=== PATIENT | female | born 1960 | race Caucasian/White ===

== ENCOUNTER → 2017-02-02 | Outpatient (REF) | payer OTHER ==
[~2017-02-02] MED LIST: ADV250INH INH; CALC600T31 PO; CIPR-249 PO; COUM1TAB17 PO; COUM2.5T17 PO; LISI-538 PO; LISI20TA3 PO; NAPR500T3 PO; OXYC-141 PO; PERC5TAB12 PO
== END ==
LOC: M LAB REF 09:30
PROVIDERS: ATTEND Physician Assistant
DX: N39.0 Urinary tract infection, site not specified (principal)

== ENCOUNTER → 2017-07-30 | Outpatient (REF) | payer OTHER | LOC: M LAB REF 12:07 | DX: N39.0 Urinary tract infection, site not specified (principal) | CPT/HCPCS: 87086 ==

== ENCOUNTER → 2019-01-14 | Outpatient (REF) | payer OTHER ==
[~2019-01-14] MED LIST changes: +NAPR-885 PO; -NAPR500T3 PO
== END ==
LOC: M SFHCWAGY 15:14
PROVIDERS: ATTEND Family Medicine
DX: Z12.4 Encounter for screening for malignant neoplasm of cervix (principal); N88.8 Other specified noninflammatory disorders of cervix uteri

== ENCOUNTER → 2019-01-14 | Outpatient (CLI) | payer OTHER ==
--- NOTE | 2019-01-14 16:12 | REP ---
BILATERAL SCREENING DIGITAL MAMMOGRAM WITH 3D TOMOSYNTHESIS: There are no palpable abnormalities or other breast complaints. The the patient states she has not had a clinical breast examination in over a year. The the patient states she performs self-breast examinations 12 times per year. The Tyrer-Cuzick Score is: 15.9% . Comparison is 05/01/2014. There are scattered areas of fibroglandular density. There is no dominant mass, micro calcific cluster or architectural distortion that would indicate malignancy. There are no additional findings on 3D tomosynthesiss. There is no change from the prior study. Impression: BIRADS/ACR category 1 mammogram. Negative. Recommendation: Routine annual screening mammography. This mammogram was interpreted with the aid of a FDA approved computer-aided detection system. A. Negative mammogram reports should not delay biopsy if a dominant or clinically suspicious mass is present. B. Not all breast cancers are identified by mammography or tomosynthesis. C. Adenosis and dense breasts may obscure an underlying neoplasm. Patient letter M1. Electronically Signed by Anjel Augustine MD 01/14/2019 04:04 P
== END ==
LOC: M WHC 14:31
PROVIDERS: ATTEND Family Medicine
DX: Z12.31 Encounter for screening mammogram for malignant neoplasm of breast (principal)

== ENCOUNTER → 2019-02-18 | Outpatient (CLI) | payer OTHER ==
[~2019-02-18] MED LIST changes: +LISI20TA20 PO; -LISI20TA3 PO
--- NOTE | 2019-02-22 15:42 | DEXA ---
AP SPINE L1 - L4 1.164 -0.2 0.7 LT FEMUR TOTAL 1.087 0.6 1.4 LT NECK 0.990 -0.3 0.8 RT FEMUR TOTAL 1.064 0.4 1.2 RT NECK 1.014 -0.2 0.9 TOTAL BODY TOTAL OTHER COMMENTS: Normal bone densitometry of the spine and hips. FOLLOW-UP: Recommendation for the next bone density exam: 5 years. ANNA
== END ==
LOC: M WHC 09:56
PROVIDERS: ATTEND Family Medicine
DX: Z13.820 Encounter for screening for osteoporosis (principal)

== ENCOUNTER → 2019-07-18 | Outpatient (REF) | payer OTHER | LOC: M LAB REF 12:40 | PROVIDERS: ATTEND Physician Assistant Medical | DX: R19.4 Change in bowel habit (principal) ==

== ENCOUNTER → 2019-08-04 | Outpatient (CLI) | payer OTHER ==
--- NOTE | 2019-08-04 08:41 | REP ---
Abdominal right upper quadrant ultrasound for liver quadrant pain, nausea, diarrhea and gallbladder evaluation: There is no cholelithiasis, gallbladder wall thickening or pericholecystic fluid. There is no intrahepatic or extrahepatic biliary duct dilatation. The common biliary duct measures 6.0 ml in diameter. The hepatic parenchyma is dense compatible with hepato steatosis. The liver is enlarged measuring 19.0 cm craniocaudad in the midclavicular line. The visualized areas of the pancreas are unremarkable. Right kidney is normal size measuring 10.6 0.2 x 4.9 cm. There is no right renal calculus or hydronephrosis. There is no right renal solid or cystic mass. There is no right upper quadrant free fluid. Impression: Hepatomegaly and dense hepatic parenchyma compatible with hepato steatosis/hepatocellular disease. There are no hepatic masses or cysts. No biliary duct dilatation. The gallbladder is unremarkable. Electronically Signed by Anjel Augustine MD 08/04/2019 08:33 A
== END ==
LOC: M RAD 06:49
PROVIDERS: ATTEND Physician Assistant Medical
DX: R10.10 Upper abdominal pain, unspecified (principal); R19.4 Change in bowel habit; R11.0 Nausea; R16.0 Hepatomegaly, not elsewhere classified; K76.89 Other specified diseases of liver

== ENCOUNTER → 2019-10-22 | Outpatient (CLI) | payer OTHER ==
[~2019-10-22] MED LIST changes: +ARNU1INH IN; +METF500T13 PO; +NAPR-832 PO; +VENTAER INH
== END ==
LOC: M LABSMTC 11:53
PROVIDERS: ATTEND Anesthesiology
DX: Z01.812 Encounter for preprocedural laboratory examination (principal); Z11.59 Encounter for screening for other viral diseases

== ENCOUNTER 2019-10-25 06:46 | Day surgery (SDC) | payer OTHER ==
[~2019-10-25] VITALS: Ht 160 cm; Wt 97.0 kg
[2019-10-25] MEDS ORDERED: propofoL 200 MG/20 ML VIAL As Ordered ONE ×2 (07:15→08:22)
[2019-10-25] MEDS ORDERED: NS 1,000 ML IV ONE (07:15)
[2019-10-25] MEDS ORDERED: LIDOCAINE 2% 100MG/5ML SDV (FOR ANES.) As Ordered ONE (07:16)
--- NOTE | 2019-10-25 08:38 | ROOR ---
Patient Name: Evy Patterson Procedure Date: 10/25/2019 8:00 AM Date of : 1960 Age: 58 Room: [facility] Gender: Female Note Status: Finalized Procedure: Colonoscopy Indications: Colon cancer screening in patient at increased risk: Personal history of susceptibility to genetic disease/MUTHY Providers: Devin MIJARES MD Referring MD: DEVIN LESTER MD Requesting Provider: Medicines: Monitored Anesthesia Care Complications: No immediate complications. Procedure: Pre-Anesthesia Assessment: - The heart rate, respiratory rate, oxygen saturations, blood pressure, adequacy of pulmonary ventilation, and response to care were monitored throughout the procedure. The Colonoscope was introduced through the anus and advanced to 10 cm into the ileum. The colonoscopy was performed without difficulty. The patient tolerated the procedure well. The quality of the bowel preparation was good. Findings: The perianal and digital rectal examinations were normal. The mucosa vascular pattern in the entire colon was mildly decreased. This was biopsied with a cold forceps for histology. Internal hemorrhoids were found during retroflexion. The hemorrhoids were medium-sized. The terminal ileum appeared normal. Impression: - Internal hemorrhoids. - The colon is essentially normal with mildly decreased mucosal vascular pattern. Biopsied randomly throughout. - The examined portion of the ileum was normal. Recommendation: - Repeat colonoscopy in 5 years for screening purposes. - Telephone endoscopist for pathology results in 2 weeks. Devin Mijares MD Devin MIJARES MD 10/25/2019 8:38:00 AM Electronically signed by Devin MIJARES MD Number of Addenda: 0 Note Initiated On: 10/25/2019 8:00 AM Estimated Blood Loss: Estimated blood loss: none.
[2019-10-25 08:50] VITALS: BP 163/74
== END 2019-10-25 08:55 | disposition home or self-care (01) ==
LOC: M OPP 06:46
PROVIDERS: ATTEND Internal Medicine Gastroenterology
DX: K52.89 Other specified noninfective gastroenteritis and colitis (principal); R19.4 Change in bowel habit; Z13.79 Encounter for other screening for genetic and chromosomal anomalies; Z82.79 Family history of other congenital malformations, deformations and chromosomal abnormalities; I10 Essential (primary) hypertension; E11.9 Type 2 diabetes mellitus without complications; G47.30 Sleep apnea, unspecified; Z87.891 Personal history of nicotine dependence; Z79.899 Other long term (current) drug therapy; Z88.1 Allergy status to other antibiotic agents

== ENCOUNTER → 2020-01-20 | Outpatient (REF) | payer OTHER | LOC: M SFHCWAGY 09:55 | PROVIDERS: ATTEND Nurse Practitioner Women's Health | DX: Z12.4 Encounter for screening for malignant neoplasm of cervix (principal) ==

== ENCOUNTER → 2020-01-20 | Outpatient (CLI) | payer OTHER ==
--- NOTE | 2020-02-09 08:53 | REPMRS ---
Patient History The patient states she had a clinical breast exam in January 2020.Patient is postmenopausal and had first child at age 41. Family history of breast cancer at age 48 in paternal half sister. Digital Woman Screen Mammo: January 20, 2020 - Exam #: [id number] Bilateral CC and MLO view(s) were taken. Technologist: Ina Hendricks, Technologist Prior study comparison: January 14, 2019, bilateral digital woman screen mammo performed at [facility]. May 01, 2014, digital woman screen mammo performed at [facility]. March 29, 2012, digital woman screen mammo performed at [facility]. FINDINGS: There are scattered fibroglandular densities. The Volpara volumetric breast density category is:B. There has been no change in the appearance of the mammogram from the prior studies. There is a mild amount of scattered fibroglandular density which is fairly symmetric. There is no interval development of dominant mass, architectural distortion, or grouped microcalcification suggestive of malignancy. 3-D tomosynthesis shows no additional findings. Report was delayed due to a protracted computer network disruption experienced by this facility. Assessment: BI-RADS/ACR category 1 mammogram. Negative Mammogram. Recommendation Routine screening mammogram of both breasts in 1 year (for women over age 40). This patient's Lifetime Breast Cancer Risk is estimated at 15.5 %. This mammogram was interpreted with the aid of an FDA-approved computer-aided dectection system. Electronically Signed By: Bernard Hudson MD 02/09/20 0853
== END ==
LOC: M WHC 17:21
PROVIDERS: ATTEND Nurse Practitioner Women's Health
DX: Z12.31 Encounter for screening mammogram for malignant neoplasm of breast (principal); Z80.3 Family history of malignant neoplasm of breast; Z78.0 Asymptomatic menopausal state

== ENCOUNTER 2020-08-08 18:19 | Emergency (ER) | payer OTHER ==
[~2020-08-08] VITALS: Ht 160 cm; Wt 98.6 kg
[~2020-08-08 18:19] MED LIST changes: -LISI-538 PO; +LISI20TA33 PO
--- OUTSIDE RECORDS SUMMARY | 2020-08-08 18:30 | CCD | Continuity of Care Document ---
Author Author Evy [facility] Organization Unknown Address [address] [place] [address], [address] [place] [address] Phone [phone] Care Team Providers Care Sql Engineer Name Role Phone Devin Harrell M.D. AUTM Delilah Deluca M.D. AUTM [phone] Ina Rich AUTM [phone] Sdio AUTM [phone] Problems Active Problems Provider Date Allergic rhinitis Sharif Cabrrea MD Onset: 08/24/2012 Noncompliance with treatment Sharif Cabrera MD Onset: 02/13 Body mass index 30+ - obesity Sharif Cabrera MD Onset: 01/2012 Sarcoidosis Sharif Cabrera MD Onset: 01/21/2011 Obesity Sharif Cabrera MD Onset: 01/21/2011 Asthma without status asthmaticus Sharif Cabrera MD Onset: 01/21/2011 Dyspnea Sharif Cabrera MD Onset: 01/21/2011 Ex-smoker Sharif Cabrera MD Onset: 01/13/2011 Allergic asthma without status asthmaticus Sharif Cabrera MD Onset: 07/30/2010 Abnormal findings on diagnostic imaging of lung Sharfi reyes MD Onset: 07/30/2010 Obstructive sleep apnea syndrome Sharif Cabrera MD Onset: 07/30/2010 Social History Type Date Description Comments Sex Unknown ETOH Use 2 A Month Tobacco Use Start: Unknown End: Patient is a former smoker Smoking Status Reviewed: 09/21/19 Patient is a former smoker Allergies, Adverse Reactions, Alerts Active Allergies Reaction Severity Comments Date Zithromax 08/21/2010 Azithromycin Mouth Sores 06/18/2009 Medications Active Medications SIG Qnty Indications Ordering Provide r Date Mesalamine 1.2gm Tablets DR villeda 4 tablet by mouth once daily for colitis 360tabs Devin Thibodeaux MD 11/12/2019 CPAP +6 Ronnell Cabrera MD 03/26 Ventolin HFA 108(90Base) mcg/Act A erosol 2 puffs qid/prn 18gm Sharif Cabrera MD 03/19/2017 Arnuity Ellipta 100mcg/Act Aerosol 1 puff every day 30units Sharif Cabrera MD 03/25/2016 Lisinopril/Hydrochlorothiazide 20-25mg Tablets 1 tab by mouth daily Unknown 000 Gloria Allergy 180mg Tablets 1 as needed 30tabs Unknown Metformin HCL 500mg Tablets 1 by mouth twice daily Unknown Multi Vitamin Tablets Daily Unknown Naproxen 500mg Tablets Daily with a second dose if needed Unknown Vitamin D 50mcg (2000 Ut) Tablets Daily Unknown Probiotic Capsules 1 by mouth every day Unknown Vitamin C With Zinc Daily Unknown Immunizations CPT Code Status Date Vaccine Lot # [id number] Given 03/22/2019 Afluria, Quadrivalent, 0.5ml , [facility]# [id number] Given 03/30/2018 Influenza Virus Vaccine, Quadrivalent, Slit Virus, [place] Use [address]26 Given 03/30/2014 Influenza Virus Split 3 Yrs And Above For Intramuscular Use Q2036 Given 03/23/2013 Influenza Vaccine 3 Years Of Age Or Older (Flulaval) Q2036 Given 07/20/2012 Influenza Vaccine 3 Years Of Age Or Older (Flulaval) 86310 Given 06/22/2011 Pneumococcal PPSV23 Q2036 Given 04/02/2011 Influenza Vaccine 3 Years Of Age Or Older (Flulaval) 35722 Given 05/02/2010 Tetanus, Diphthe lenora Toxoids/Acellular Pertussis Vaccine 7 Or > 44168 Given 05/02/2010 Influenza Virus Split 3 Yrs And Above For Intramuscular Use Vital Signs Date Vital Result Comment 07/12/2020 3:10pm Height 63 inches 5'3" Weight 220.00 lb BMI (Body Mass Index) 39.0 kg/m2 [place] Body Weight 115 lb Weight 99.792 kg BSA (Body Surface Area) 2.01 m2 04/02/2020 8:21am BP Systolic 130 mmHg BP Diastolic 80 mmHg Heart Rate 94 /min O2 % BldC Oximetry 97 % Room Air Height 63 inches 5'3" Weight 214.00 lb BMI (Body Mass Index) 37.9 kg/m2 [place] Body Weight 115 lb Weight 97.070 kg BSA (Body Surface Area) 1.99 m2 Results Description No Information Available Procedures Date Code Description Status 04/02/2020 23409 Spirometry Completed Medical Devices Description No Information Available Encounters Type Date Location Provider Dx Diagnosis Office Visit 04/02/2020 8:30a [facility] Pulmonary/Thoracic Lawrenc margret Cabrera MD J45.40 Moderate persistent asthma, uncomplicate d G47.33 Obstructive sleep apnea (vineet lt) (pediatric) J30.9 Allergic rhinitis, unspecifi ed Assessments Date Code Description Provider 04/02/2020 J45.40 Moderate persistent asthma, unco mplicated Sharif Cabrera MD 04/02/2020 G47.33 Obstructive sleep apnea (adult) (pediatric) Sharif Cabrera MD 04/02/2020 J30.9 Allergic rhinitis, unspecified L nitesh Cabrera MD Plan of Treatment Future Appointment(s):* 10/09/2020 9:30 am - Sharif Cabrera MD at [facility] Pulmonary/Thoracic Functional Status Description No Information Available Mental Status Description No Information Available Referrals Description No Information Available
--- OUTSIDE RECORDS SUMMARY | 2020-08-08 18:30 | CCD | Continuity of Care Document ---
Author Author Evy [facility] [place] Organization Unknown Address [address] [place] [address] [place] [address] Phone [phone] Care Team Providers Care Supervisor Cell Room Name Role Phone [facility] AUTM [phone] Problems Description No Information Available Social History Type Date Description Comments Sex Unknown ETOH Use Denies alcohol use Tobacco Use Start: Unknown End: Unknown Patient is a former smoker 2001 Smoking Status Reviewed: 08/07/20 Patient is a former smoker 20 02 Allergies, Adverse Reactions, Alerts Active Allergies Reaction Severity Comments Date Azithromycin mouth pain 02/02/2017 Medications Active Medications SIG Qnty Indications Ordering Provide r Date Prednisone 20mg Tablets take one tablet three times a day for three days, then take one tab twice a day for three days, then take one tab daily for next three days 18tabs J45.21 Navdeep Da Silva JR., M.D. 08/07/2020 Doxycycline Monohydrate 100mg Tabl ets 1 tab by mouth twice a day for 10 days 20tabs J45.21 Navdeep Da Silva JR., M.D. 08/07/2020 Proair HFA 108(90Base) mcg/Act Aer osol 2 puffs every 4-6 hours as needed for sob 8.500gm J45.909 Navdeep Da Silva JR., M.D. 01/02/2019 Lisinopril qd Unknown Metformin HCL bid Unknown Arnuity Ellipta prn Unknown 0 Naproxen 375mg Tablets 1 tab by mouth three times a day as needed pain Unknown Montelukast Sodium 10mg Tablets Take One Tablet By Mouth Every Day Unknown Lialda 1.2gm Tablets DR Take Four Tablets By Mouth Once A Day For Colitis Unknown Sudafed 30mg Tablets 1 tab by mouth twice a day x 5 days as needed congestion Last dose at 2pm Unknown Immunizations Description No Information Available Vital Signs Date Vital Result Comment 08/07/2020 3:38pm BP Systolic 167 mmHg BP Diastolic 97 mmHg Heart Rate 93 /min Respiratory Rate 18 /min O2 % BldC Oximetry 97 % Body Temperature 98.0 F Weight 117.00 lb Height 63 inches 5'3" BMI (Body Mass Index) 20.7 kg/m2 Pain Level 9 01/02/2019 8:59am BP Systolic 192 mmHg BP Diastolic 102 mmHg Heart Rate 78 /min Respiratory Rate 18 /min O2 % BldC Oximetry 98 % Body Temperature 98.3 F Weight 217.00 lb Height 63 inches 5'3" BMI (Body Mass Index) 38.4 kg/m2 Pain Level 7 Results Description No Information Available Procedures Description No Information Available Medical Devices Description No Information Available Encounters Type Date Location Provider Dx Diagnosis Office Visit 08/07/2020 3:30p Main Office TAMMI Odom U07 .1 Covid-19 J45.21 Mild intermittent asthma wit h (acute) exacerbation Z20.828 Contact w and exposure to ot h viral communicable diseases Assessments Date Code Description Provider 08/07/2020 U07.1 Covid-19 TAMMI Workman 08/07/2020 J45.21 Mild intermittent asthma with (a cute) exacerbation TAMMI Odom 08/07/2020 Z20.828 Contact with and (mcdonough spected) exposure to other viral communicable diseases TAMMI Odom Plan of Treatment No Information Available Functional Status Description No Information Available Mental Status Description No Information Available Referrals Description No Information Available
--- OUTSIDE RECORDS SUMMARY | 2020-08-08 18:30 | CCD ---
Author Author [facility] Organization [facility] Address Unknown Phone Unavailable Care Team Providers Care Independent Marketing Consultant Name Role Phone PETROFF XU PA Unavailable Unavailable PETROFF, XU PA Unavailable Unavailable PETROFF, XU PA Unavailable Unavailable PETROFF, XU PA Unavailable Unavailable PETROFF, XU PA Unavailable Unavailable PETROFF, XU PA Unavailable Unavailable PETROFF, XU PA Unavailable Unavailable PETROFF, XU PA Unavailable Unavailable TOMArmaan PA Unavailable Unavailable TOMArmaan PA Unavailable Unavailable TOMArmaan PA Unavailable Unavailable TOMArmaan PA Unavailable Unavailable TOMArmaan PA Unavailable Unavailable TOMArmaan PA Unavailable Unavailable TOMArmaan PA Unavailable Unavailable TOMArmaan PA Unavailable Unavailable TOMArmaan PA Unavailable Unavailable TOMArmaan PA Unavailable Unavailable TOMArmaan PA Unavailable Unavailable TOMArmaan PA Unavailable Unavailable TOMArmaan PA Unavailable Unavailable TOM, L BONITA PA Unavailable Unavailable TOM, L BONITA PA Unavailable Unavailable TOM, L BONITA PA Unavailable Unavailable TOM, L BONITA PA Unavailable Unavailable TOM, L BONITA PA Unavailable Unavailable TOM, L BONITA PA Unavailable Unavailable Bear, W Ham RPA-C Unavailable Unavailable Bear, W Ham RPA-C Unavailable Unavailable Bear, W Ham RPA-C Unavailable Unavailable Bear, W Ham RPA-C Unavailable Unavailable Bear, W Ham RPA-C Unavailable Unavailable Bear, W Ham RPA-C Unavailable Unavailable Bear, W Ham RPA-C Unavailable Unavailable Bear, W Ham RPA-C Unavailable Unavailable Bear, W Ham RPA-C Unavailable Unavailable Bear, W Ham RPA-C Unavailable Unavailable Bear, W Ham RPA-C Unavailable Unavailable Bear, W Ham RPA-C Unavailable Unavailable Bear, W Ham RPA-C Unavailable Unavailable Bear, W Ham RPA-C Unavailable Unavailable Bear, W Ham RPA-C Unavailable Unavailable Bear, W Ham RPA-C Unavailable Unavailable SHANICE, SANA PA Unavailable Unavailable SHANICE, SANA PA Unavailable Unavailable SHANICE, SANA PA Unavailable Unavailable SHANICE, SANA PA Unavailable Unavailable SHANICE, SANA PA Unavailable Unavailable SHANICE, SANA PA Unavailable Unavailable SHANICE, SANA PA Unavailable Unavailable SHANICE, SANA PA Unavailable Unavailable SHANICE, SANA PA Unavailable Unavailable SHANICE, SANA PA Unavailable Unavailable SHANICE, SANA PA Unavailable Unavailable SHANICE, SANA PA Unavailable Unavailable SHANICE, SANA PA Unavailable Unavailable SHANICE, SANA PA Unavailable Unavailable SHANICE, SANA PA Unavailable Unavailable PRINCE, W CASSI PA Unavailable Unavailable PRINCE, W CASSI PA Unavailable Unavailable PRINCE, W CASSI PA Unavailable Unavailable PRINCE, W CASSI PA Unavailable Unavailable PRINCE, W CASSI PA Unavailable Unavailable PRINCE, W CASSI PA Unavailable Unavailable PRINCE, W CASSI PA Unavailable Unavailable PRINCE, W CASSI PA Unavailable Unavailable PRINCE, W CASSI PA Unavailable Unavailable PRINCE, W CASSI PA Unavailable Unavailable PRINCE, W CASSI PA Unavailable Unavailable PRINCE, W CASSI PA Unavailable Unavailable PRINCE, W CASSI PA Unavailable Unavailable PRINCE, W CASSI PA Unavailable Unavailable Pati, Reginah W Yajaira SENIOR ACCOUNTING SPECIALIST-C Unavailable Unavailabl e Pati, Regelhamh W Yajaira SENIOR ACCOUNTING SPECIALIST-C Unavailable Unavailabl e Pati, Reginah W Yajaira SENIOR ACCOUNTING SPECIALIST-C Unavailable Unavailabl e Pati, Reginah W Y[place]a SENIOR ACCOUNTING SPECIALIST-C Unavailable Unavailabl e Pati, Reginah W Yajaira SENIOR ACCOUNTING SPECIALIST-C Unavailable Unavailabl e Pati, Reginah W Yajaira SENIOR ACCOUNTING SPECIALIST-C Unavailable Unavailabl e Pati, Lukeinachevy W Yaj[place]a SENIOR ACCOUNTING SPECIALIST-C Unavailable Unavailabl e Pati, Lukeinachevy W Yaj[place]a SENIOR ACCOUNTING SPECIALIST-C Unavailable Unavailabl e Pati, Zhang W Yaj[place]a SENIOR ACCOUNTING SPECIALIST-C Unavailable Unavailabl e Pati, Zhang W [place]a SENIOR ACCOUNTING SPECIALIST-C Unavailable Unavailabl e Pati, Reginachevy W Yajaira SENIOR ACCOUNTING SPECIALIST-C Unavailable Unavailabl e Pati, Zhang W Yajaira SENIOR ACCOUNTING SPECIALIST-C Unavailable Unavailabl e Pati, Zhang W Yaj[place]a SENIOR ACCOUNTING SPECIALIST-C Unavailable Unavailabl e Pati, Lukeinachevy W Yajaira SENIOR ACCOUNTING SPECIALIST-C Unavailable Unavailabl e Pati, Zhang W Yajaira SENIOR ACCOUNTING SPECIALIST-C Unavailable Unavailabl e Pati, Zhang W Yaj[place]a SENIOR ACCOUNTING SPECIALIST-C Unavailable Unavailabl e Pati, Zhang W Yajaira SENIOR ACCOUNTING SPECIALIST-C Unavailable Unavailabl e Pati, Zhang W Yaj[place]a SENIOR ACCOUNTING SPECIALIST-C Unavailable Unavailabl e Pati, Zhang W Yajaira SENIOR ACCOUNTING SPECIALIST-C Unavailable Unavailabl e Pati, Zhang W Yaj[place]a SENIOR ACCOUNTING SPECIALIST-C Unavailable Unavailabl e Pati, Zhang W Y[place]a SENIOR ACCOUNTING SPECIALIST-C Unavailable Unavailabl e Pati, Zhang W Yaj[place]a SENIOR ACCOUNTING SPECIALIST-C Unavailable Unavailabl e Pati, Zhang W [place]a SENIOR ACCOUNTING SPECIALIST-C Unavailable Unavailabl e Pati, Regradha W Yajaira SENIOR ACCOUNTING SPECIALIST-C Unavailable Unavailabl e Pati, Regradha W [place]a SENIOR ACCOUNTING SPECIALIST-C Unavailable Unavailabl e Pati, Reginachevy W Yajaira SENIOR ACCOUNTING SPECIALIST-C Unavailable Unavailabl e Pati, Regina W Yajaira SENIOR ACCOUNTING SPECIALIST-C Unavailable Unavailabl e Pati, Reginachevy W Y[place]a SENIOR ACCOUNTING SPECIALIST-C Unavailable Unavailabl e Pati, Regradha W Yajaira SENIOR ACCOUNTING SPECIALIST-C Unavailable Unavailabl e Pati, Regelham W Yajaira SENIOR ACCOUNTING SPECIALIST-C Unavailable Unavailabl e Pati, Regina W Yajaira SENIOR ACCOUNTING SPECIALIST-C Unavailable Unavailabl e Pati, Regina W Yajaira SENIOR ACCOUNTING SPECIALIST-C Unavailable Unavailabl e REINDL, KASIA GRECO Unavailable Unavailable REINDL, KASIA GRECO Unavailable Unavailable REINDL, KASIA GRECO Unavailable Unavailable REINDL, KASIA GRECO Unavailable Unavailable REINDL, KASIA GRECO Unavailable Unavailable REINDL, KASIA GRECO Unavailable Unavailable REINDL, KASIA GRECO Unavailable Unavailable REINDL, KASIA GRECO Unavailable Unavailable REINDL, KASIA GRECO Unavailable Unavailable REINDL, KASIA GRECO Unavailable Unavailable REINDL, KASIA GRECO Unavailable Unavailable REINDL, KASIA GRECO Unavailable Unavailable REINDL, KASIA GRECO Unavailable Unavailable REINDL, KASIA GRECO Unavailable Unavailable REINDL, KASIA GRECO Unavailable Unavailable REINDL, KASIA GRECO Unavailable Unavailable REINDL, KASIA GRECO Unavailable Unavailable REINDL, KASIA GRECO Unavailable Unavailable REINDL, KASIA GRECO Unavailable Unavailable REINDL, KASIA GRECO Unavailable Unavailable REINDL, KASIA GRECO Unavailable Unavailable REINDL, KASIA GRECO Unavailable Unavailable REINDL, KASIA GRECO Unavailable Unavailable REINDL, KASIA GRECO Unavailable Unavailable REINDL, KASIA GRECO Unavailable Unavailable REINDL, KASIA GRECO Unavailable Unavailable REINDL, KASIA GRECO Unavailable Unavailable REINDL, KASIA GRECO Unavailable Unavailable REINDL, KASIA GRECO Unavailable Unavailable REINDL, KASIA GRECO Unavailable Unavailable REINDL, KASIA GRECO Unavailable Unavailable REINDL, KASIA GRECO Unavailable Unavailable REINDL, KASIA GRECO Unavailable Unavailable REINDL, KASIA GRECO Unavailable Unavailable REINDL, KASIA GRECO Unavailable Unavailable REINDL, KASIA GRECO Unavailable Unavailable REINDL, KASIA GRECO Unavailable Unavailable REINDL, KASIA GRECO Unavailable Unavailable REINDL, KASIA GRECO Unavailable Unavailable REINDL, KASIA GRECO Unavailable Unavailable REINDL, KASIA GRECO Unavailable Unavailable REINDL, KASIA GRECO Unavailable Unavailable REINDL, KASIA GRECO Unavailable Unavailable REINDL, KASIA GRECO Unavailable Unavailable HAMLET, MONICA OLAYINKA PA Unavailable Unavailable HAMLET, MONICA OLAYINKA PA Unavailable Unavailable HAMLET, MONICA OLAYINKA PA Unavailable Unavailable HAMLET, MONICA OLAYINKA PA Unavailable Unavailable HAMLET, MONICA OLAYINKA PA Unavailable Unavailable HAMLET, MONICA OLAYINKA PA Unavailable Unavailable HAMLET, MONICA OLAYINKA PA Unavailable Unavailable HAMLET, MONICA OLAYINKA PA Unavailable Unavailable HAMLET, MONICA OLAYINKA PA Unavailable Unavailable HAMLET, MONICA OLAYINKA PA Unavailable Unavailable HAMLET, MONICA OLAYINKA PA Unavailable Unavailable HAMLET, MONICA OLAYINKA PA Unavailable Unavailable HAMLET, MONICA OLAYINKA PA Unavailable Unavailable HAMLET, MONICA OLAYINKA PA Unavailable Unavailable HAMLET, MONICA OLAYINKA PA Unavailable Unavailable HAMLET, MONICA OLAYINKA PA Unavailable Unavailable HAMLET, MONICA OLAYINKA PA Unavailable Unavailable HAMLET, MONICA OLAYINKA PA Unavailable Unavailable HAMLET, MONICA OLAYINKA PA Unavailable Unavailable HAMLET, MONICA OLAYINKA PA Unavailable Unavailable HAMLET, MONICA OLAYINKA PA Unavailable Unavailable HAMLET, MONICA OLAYINKA PA Unavailable Unavailable LETTIERE, A JANETH PA Unavailable Unavailable LETTIERE, A JANETH PA Unavailable Unavailable LETTIERE, A JANETH PA Unavailable Unavailable LETTIERE, A JANETH PA Unavailable Unavailable LETTIERE, A JANETH PA Unavailable Unavailable LETTIERE, A JANETH PA Unavailable Unavailable LETTIERE, A JANETH PA Unavailable Unavailable LETTIERE, A JANETH PA Unavailable Unavailable LETTIERE, A JANETH PA Unavailable Unavailable LETTIERE, A JANETH PA Unavailable Unavailable LETTIERE, A JANETH PA Unavailable Unavailable LETTIERE, A JANETH PA Unavailable Unavailable LETTIERE, A JANETH PA Unavailable Unavailable LETTIERE, A JANETH PA Unavailable Unavailable LETTIERE, A JANETH PA Unavailable Unavailable LETTIERE, A JAENTH PA Unavailable Unavailable LETTIERE, A JANETH PA Unavailable Unavailable LETTIERE, A JANETH PA Unavailable Unavailable LETTIERE, A JANETH PA Unavailable Unavailable LETTIERE, A JANETH PA Unavailable Unavailable LETTIERE, A JANETH PA Unavailable Unavailable LETTIERE, A JANETH PA Unavailable Unavailable LETTIERE, A JANETH PA Unavailable Unavailable LETTIERE, A JANETH PA Unavailable Unavailable LETTIERE, A JANETH PA Unavailable Unavailable LETTIERE, A JANETH PA Unavailable Unavailable LETTIERE, A JANETH PA Unavailable Unavailable LETTIERE, A JANETH PA Unavailable Unavailable LETTIERE, A JANETH PA Unavailable Unavailable LESTER SR, JANETH PEDROZA MD Unavailable Unavailable LESTER SR, JANETH PEDROZA MD Unavailable Unavailable LESTER SR, JANETH PEDROZA MD Unavailable Unavailable LESTER SR, JANETH PEDROZA MD Unavailable Unavailable LESTER SR, JANETH PEDROZA MD Unavailable Unavailable LESTER SR, JANETH PEDROZA MD Unavailable Unavailable LESTER SR, JANETH PEDROZA MD Unavailable Unavailable LESTER SR, JANETH PEDROZA MD Unavailable Unavailable LESTER SR, JANETH PEDROZA MD Unavailable Unavailable LESTER SR, JANETH PEDROZA MD Unavailable Unavailable LESTER SR, JANETH PEDROZA MD Unavailable Unavailable LESTER SR, JANETH PEDROZA MD Unavailable Unavailable LESTER SR, JANETH PEDROZA MD Unavailable Unavailable LESTER SR, JANETH PEDROZA MD Unavailable Unavailable LESTER SR, JANETH PEDROZA MD Unavailable Unavailable LESTER SR, JANETH PEDROZA MD Unavailable Unavailable LESTER SR, JANETH PEDROZA MD Unavailable Unavailable LESTER SR, JANETH PEDROZA MD Unavailable Unavailable LESTER SR, JANETH PEDROZA MD Unavailable Unavailable LESTER SR, JANETH PEDROZA MD Unavailable Unavailable LESTER SR, JANETH PEDROZA MD Unavailable Unavailable LESTER SR, JANETH PEDROZA MD Unavailable Unavailable LESTER SR, JANETH PEDROZA MD Unavailable Unavailable LESTER SR, JANETH PEDROZA MD Unavailable Unavailable LESTER SR, JANETH PEDROZA MD Unavailable Unavailable LESTER SR, JANETH PEDROZA MD Unavailable Unavailable LESTER SR, JANETH PEDROZA MD Unavailable Unavailable LESTER SR, JANETH PEDROZA MD Unavailable Unavailable LESTER SR, JANETH PEDROZA MD Unavailable Unavailable LESTER SR, JANETH PEDROZA MD Unavailable Unavailable LESTER SR, JANETH PEDROZA MD Unavailable Unavailable LESTER SR, JANETH PEDROZA MD Unavailable Unavailable LESTER SR, JANETH PEDROZA MD Unavailable Unavailable LESTER SR, JANETH PEDROZA MD Unavailable Unavailable LESTER SR, JANETH PEDROZA MD Unavailable Unavailable LESTER SR, JANETH PEDROZA MD Unavailable Unavailable LESTER SR, JANETH PEDROZA MD Unavailable Unavailable LESTER SR, JANETH PEDROZA MD Unavailable Unavailable LESTER SR, JANETH PEDROZA MD Unavailable Unavailable LESTER SR, JANETH PEDROZA MD Unavailable Unavailable LESTER SR, JANETH PEDROZA MD Unavailable Unavailable LESTER SR, JANETH PEDROZA MD Unavailable Unavailable LESTER SR, JANETH PEDROZA MD Unavailable Unavailable LESTER SR, JANETH PEDROZA MD Unavailable Unavailable LESTER SR, JANETH PEDROZA MD Unavailable Unavailable LESTER SR, JANETH PEDROZA MD Unavailable Unavailable LESTER SR, JANETH PEDROZA MD Unavailable Unavailable LESTER SR, JANETH PEDROZA MD Unavailable Unavailable LESTER SR, JANETH PEDROZA MD Unavailable Unavailable LESTER SR, JANETH PEDROZA MD Unavailable Unavailable LESTER SR, JANETH PEDROZA MD Unavailable Unavailable LESTER SR, JANETH PEDROZA MD Unavailable Unavailable LESTER SR, JANETH PEDROZA MD Unavailable Unavailable LESTER SR, JANETH PEDROZA MD Unavailable Unavailable MALINDADilan WILDER DO Unavailable Unavailable MALINDADilan WILDER DO Unavailable Unavailable MALINDADilan WILDER DO Unavailable Unavailable MALINDADilanW DO Unavailable Unavailable MALINDADilan WILDERW DO Unavailable Unavailable MALINDADilan WILDERW DO Unavailable Unavailable MALINDADilanW DO Unavailable Unavailable MALINDADilanW DO Unavailable Unavailable MALINDA J GURPREET DO Unavailable Unavailable MALINDA, J GURPREET DO Unavailable Unavailable MALINDA J GURPREET DO Unavailable Unavailable MALINDA, J GURPREET DO Unavailable Unavailable MALINDA, J GURPREET DO Unavailable Unavailable MALINDA, J GURPREET DO Unavailable Unavailable MALINDA, J GURPREET DO Unavailable Unavailable MALINDA, J GURPREET DO Unavailable Unavailable MALINDA, J GURPREET DO Unavailable Unavailable MALINDA, J GURPREET DO Unavailable Unavailable MALINDA, J GURPREET DO Unavailable Unavailable MALINDA, J GURPREET DO Unavailable Unavailable MALINDA J GURPREET DO Unavailable Unavailable MALINDA Dilan GURPREET DO Unavailable Unavailable MALINDA, J GURPREET DO Unavailable Unavailable Charlebois, A Nora RPA C Unavailable Unavailable Charlebois, A Nora RPA C Unavailable Unavailable Charlebois, A Nora RPA C Unavailable Unavailable Charlebois, A Nora RPA C Unavailable Unavailable Charlebois, A Nora RPA C Unavailable Unavailable Charlebois, A Nora RPA C Unavailable Unavailable Charlebois, A Nora RPA C Unavailable Unavailable Charlebois, A Nora RPA C Unavailable Unavailable Charlebois, A Nora RPA C Unavailable Unavailable Charlebois, A Nora RPA C Unavailable Unavailable Charlebois, A Nora RPA C Unavailable Unavailable Charlebois, A Nora RPA C Unavailable Unavailable Charlebois, A Nora RPA C Unavailable Unavailable Charlebois, A Nora RPA C Unavailable Unavailable Charlebois, A Nora RPA C Unavailable Unavailable Charlebois, A Nora RPA C Unavailable Unavailable Charlebois, A Nora RPA C Unavailable Unavailable Charlebois, A Nora RPA C Unavailable Unavailable Charlebois, A Nora RPA C Unavailable Unavailable Charlebois, A Nora RPA C Unavailable Unavailable Charlebois, A Nora RPA C Unavailable Unavailable Charlebois, A Nora RPA C Unavailable Unavailable Charlebois, A Nora RPA C Unavailable Unavailable Charlebois, A Nora RPA C Unavailable Unavailable Charlebois, A Nora RPA C Unavailable Unavailable Charlebois, A Nora RPA C Unavailable Unavailable Charlebois, A Nora RPA C Unavailable Unavailable Charlebois, A Nora RPA C Unavailable Unavailable Charlebois, A Nora RPA C Unavailable Unavailable Charlebois, A Nora RPA C Unavailable Unavailable Charlebois, A Nora RPA C Unavailable Unavailable HUIZENGA, Darryn CLIFTON DO Unavailable Unavailable HUIZENGA, Darryn CLIFTON DO Unavailable Unavailable HUIZENGA, Darryn CLIFTON DO Unavailable Unavailable HUIZENGA, Darryn CLIFTON DO Unavailable Unavailable HUIZENGA, Darryn CLIFTON DO Unavailable Unavailable HUIZENGA, Darryn CLIFTON DO Unavailable Unavailable HUIZENGA, Darryn CLIFTON DO Unavailable Unavailable HUIZENGA, Darryn CLIFTON DO Unavailable Unavailable HUIZENGA, Darryn CLIFTON DO Unavailable Unavailable HUIZENGA, Darryn CLIFTON DO Unavailable Unavailable HUIZENGA, Darryn CLIFTON DO Unavailable Unavailable HUIZENGA, Darryn CLIFTON DO Unavailable Unavailable HUIZENGA, Darryn CLIFTON DO Unavailable Unavailable HUIZENGA, Darryn CLIFTON DO Unavailable Unavailable HUIZENGA, Darryn CLIFTON DO Unavailable Unavailable HUIZENGA, Darryn CLIFTON DO Unavailable Unavailable HUIZENGA, Darryn CLIFTON DO Unavailable Unavailable HUIZENGA, Darryn CLIFTON DO Unavailable Unavailable HUIZENGA, Darryn CLIFTON DO Unavailable Unavailable HUIZENGA, Darryn CLIFTON DO Unavailable Unavailable HUIZENGA, Darryn CLIFTON DO Unavailable Unavailable HUIZENGA, Darryn CLIFTON DO Unavailable Unavailable HUIZENGA, Darryn CLIFTON DO Unavailable Unavailable HUIZENGA, Darryn CLIFTON DO Unavailable Unavailable HUIZENGA, Darryn CLIFTON DO Unavailable Unavailable HUIZENGA, Darryn CLIFTON DO Unavailable Unavailable HUIZENGA, Darryn CLIFTON DO Unavailable Unavailable HUIZENGA, Darryn CLIFTON DO Unavailable Unavailable HUIZENGA, Darryn CLIFTON DO Unavailable Unavailable HUIZENGA, Darryn CLIFTON DO Unavailable Unavailable HUIZENGA, Darryn CLIFTON DO Unavailable Unavailable HUIZENGA, Darryn CLIFTON DO Unavailable Unavailable HUIZENGA, Darryn CLIFTON DO Unavailable Unavailable HUIZENGA, Darryn CLIFTON DO Unavailable Unavailable HUIZENGA, Darryn CLIFTON DO Unavailable Unavailable HUIZENGA, Darryn CLIFTON DO Unavailable Unavailable HUIZENGA, Darryn CLIFTON DO Unavailable Unavailable HUIZENGA, Darryn CLIFTON DO Unavailable Unavailable HUIZENGA, Darryn CLIFTON DO Unavailable Unavailable HUIZENGA, Darryn CLIFTON DO Unavailable Unavailable HUIZENGA, Darryn CLIFTON DO Unavailable Unavailable HUIZENGA, Darryn CLIFTON DO Unavailable Unavailable HUIZENGA, Darryn CLIFTON DO Unavailable Unavailable HUIZENGA, Darryn CLIFTON DO Unavailable Unavailable HUIZENGA, Darryn CLIFTON DO Unavailable Unavailable HUIZENGA, Darryn CLIFTON DO Unavailable Unavailable HUIZENGA, Darryn CLIFTON DO Unavailable Unavailable HUIZENGA, Darryn CLIFTON DO Unavailable Unavailable HUIZENGA, Darryn CLIFTON DO Unavailable Unavailable HUIZENGA, Darryn CLIFTON DO Unavailable Unavailable HUIZENGA, Darryn CLIFTON DO Unavailable Unavailable HUIZENGA, Darryn CLIFTON DO Unavailable Unavailable HUIZENGA, Darryn CLIFTON DO Unavailable Unavailable HUIZENGA, Darryn CLIFTON DO Unavailable Unavailable HUIZENGA, Darryn CLIFTON DO Unavailable Unavailable HUIZENGA, Darryn CLIFTON DO Unavailable Unavailable HUIZENGA, D ELODIA DO Unavailable Unavailable HUIZENGA, D ELODIA DO Unavailable Unavailable HUIZENGA, D ELODIA DO Unavailable Unavailable HUIZENGA, D ELODIA DO Unavailable Unavailable HUIZENGA, D ELODIA DO Unavailable Unavailable HUIZENGA, D ELODIA DO Unavailable Unavailable HUIZENGA, D ELODIA DO Unavailable Unavailable HUIZENGA, D ELODIA DO Unavailable Unavailable HUIZENGA, D ELODIA DO Unavailable Unavailable HUIZENGA, D ELODIA DO Unavailable Unavailable HUIZENGA, D ELODIA DO Unavailable Unavailable HUIZENGA, D ELODIA DO Unavailable Unavailable HUIZENGA, D ELODIA DO Unavailable Unavailable HUIZENGA, D ELODIA DO Unavailable Unavailable HUIZENGA, D ELODIA DO Unavailable Unavailable HUIZENGA, D ELODIA DO Unavailable Unavailable HUIZENGA, D ELODIA DO Unavailable Unavailable Bright Cabrera MD Unavailable Unavailable Bright Cabrera MD Unavailable Unavailable Bright Cabrera MD Unavailable Unavailable Bright Cabrera MD Unavailable Unavailable Bright Cabrera MD Unavailable Unavailable Bright Cabrera MD Unavailable Unavailable Bright Cabrera MD Unavailable Unavailable Bright Cabrera MD Unavailable Unavailable Bright Cabrera MD Unavailable Unavailable Bright Cabrera MD Unavailable Unavailable Bright Cabrera MD Unavailable Unavailable Bright Cabrera MD Unavailable Unavailable Bright Cabrera MD Unavailable Unavailable Bright Cabrera MD Unavailable Unavailable Bright Cabrera MD Unavailable Unavailable Bright Cabrera MD Unavailable Unavailable Bright Cabrera MD Unavailable Unavailable Bright Cabrera MD Unavailable Unavailable Bright Cabrera MD Unavailable Unavailable Bright Cabrera MD Unavailable Unavailable Bright Cabrera MD Unavailable Unavailable Bright Cabrera MD Unavailable Unavailable Bright Cabrera MD Unavailable Unavailable Bright Cabrera MD Unavailable Unavailable Bright Cabrera MD Unavailable Unavailable Bright Cabrera MD Unavailable Unavailable Bright Cabrera MD Unavailable Unavailable Bright Cabrera MD Unavailable Unavailable Bright Cabrera MD Unavailable Unavailable Bright Cabrera MD Unavailable Unavailable Bright Cabrera MD Unavailable Unavailable Bright Cabrera MD Unavailable Unavailable Bright Cabrera MD Unavailable Unavailable Bright Cabrera MD Unavailable Unavailable Bright Cabrera MD Unavailable Unavailable Bright Cabrera MD Unavailable Unavailable Bright Cabrera MD Unavailable Unavailable Bright Cabrera MD Unavailable Unavailable Bright Cabrera MD Unavailable Unavailable Bright Cabrera MD Unavailable Unavailable Bright Cabrera MD Unavailable Unavailable Bright Cabrera MD Unavailable Unavailable Bright Cabrera MD Unavailable Unavailable Bright Cabrera MD Unavailable Unavailable Bright Cabrera MD Unavailable Unavailable Bright Cabrera MD Unavailable Unavailable Bright Cabrera MD Unavailable Unavailable Bright Cabrera MD Unavailable Unavailable Bright Cabrera MD Unavailable Unavailable Bright Cabrera MD Unavailable Unavailable Cabrera, Bright Olguin MD Unavailable Unavailable Rydberg, Lucy PA Unavailable Unavailable Rydberg, Lucy PA Unavailable Unavailable Rydberg, Lucy PA Unavailable Unavailable Rydberg, Lucy PA Unavailable Unavailable Rydberg, Lucy PA Unavailable Unavailable Rydberg, Lucy PA Unavailable Unavailable Rydberg, Lucy PA Unavailable Unavailable Rydberg, Lucy PA Unavailable Unavailable Rydberg, Lucy PA Unavailable Unavailable Rydberg, Lucy PA Unavailable Unavailable Rydberg, Lucy PA Unavailable Unavailable Rydberg, Lucy PA Unavailable Unavailable Rydberg, Lucy PA Unavailable Unavailable Rydberg, Lucy PA Unavailable Unavailable Rydberg, Lucy PA Unavailable Unavailable Rydberg, Lucy PA Unavailable Unavailable Rydberg, Lucy PA Unavailable Unavailable Rydberg, Lucy PA Unavailable Unavailable Rydberg, Lucy PA Unavailable Unavailable Rydberg, Lucy PA Unavailable Unavailable Rydberg, Lucy PA Unavailable Unavailable Rydberg, Lucy PA Unavailable Unavailable Laxmi, L Isabel SYSTEM SUPPORT SPECIALIST Unavailable Unavailable Laxmi, L Isabel SYSTEM SUPPORT SPECIALIST Unavailable Unavailable Laxmi, L Isabel SYSTEM SUPPORT SPECIALIST Unavailable Unavailable Laxmi, L Isabel SYSTEM SUPPORT SPECIALIST Unavailable Unavailable Laxmi, L Isabel SYSTEM SUPPORT SPECIALIST Unavailable Unavailable Laxmi, L Isabel SYSTEM SUPPORT SPECIALIST Unavailable Unavailable Laxmi, L Isabel SYSTEM SUPPORT SPECIALIST Unavailable Unavailable Laxmi, L Isabel SYSTEM SUPPORT SPECIALIST Unavailable Unavailable Laxmi, L Isabel SYSTEM SUPPORT SPECIALIST Unavailable Unavailable Laxmi, L Isabel SYSTEM SUPPORT SPECIALIST Unavailable Unavailable Laxmi, L Isabel SYSTEM SUPPORT SPECIALIST Unavailable Unavailable Laxmi, L Isabel SYSTEM SUPPORT SPECIALIST Unavailable Unavailable Laxmi, L Isabel SYSTEM SUPPORT SPECIALIST Unavailable Unavailable Laxmi, L Isabel SYSTEM SUPPORT SPECIALIST Unavailable Unavailable Laxmi, L Isabel SYSTEM SUPPORT SPECIALIST Unavailable Unavailable Laxmi, L Isabel SYSTEM SUPPORT SPECIALIST Unavailable Unavailable Laxmi, L Isabel SYSTEM SUPPORT SPECIALIST Unavailable Unavailable Laxmi, L Isabel SYSTEM SUPPORT SPECIALIST Unavailable Unavailable Laxmi, L Isabel SYSTEM SUPPORT SPECIALIST Unavailable Unavailable Laxmi, L Isabel SYSTEM SUPPORT SPECIALIST Unavailable Unavailable Laxmi, L Isabel SYSTEM SUPPORT SPECIALIST Unavailable Unavailable Laxmi, L Isabel SYSTEM SUPPORT SPECIALIST Unavailable Unavailable Re-disclosure Warning The records that you are about to access may contain information from federally-assisted alcohol or drug abuse programs. If such information is present, then the following federally mandated warning applies: This information has been disclosed to you from records protected by federal confidentiality rules (42 CFR part 2). The federal rules prohibit you from making any further disclosure of this information unless further disclosure is expressly permitted by the written consent of the person to whom it pertains or as otherwise permitted by 42 CFR part 2. A general authorization for the release of medical or other information is NOT sufficient for this purpose. The Federal rules restrict any use of the information to criminally investigate or prosecute any alcohol or drug abuse patient.The records that you are about to access may contain highly sensitive health information, the redisclosure of which is protected by Article 27-F of the [facility] Public Health law. If you continue you may have access to information: Regarding HIV / AIDS; Provided by facilities licensed or operated by the [facility] Office of Mental Health; or Provided by the [facility] Office for People With Developmental Disabilities. If such information is present, then the following [facility] mandated warning applies: This information has been disclosed to you from confidential records which are protected by state law. State law prohibits you from making any further disclosure of this information without the specific written consent of the person to whom it pertains, or as otherwise permitted by law. Any unauthorized further disclosure in violation of state law may result in a fine or skilled nursing sentence or both. A general authorization for the release of medical or other information is NOT sufficient authorization for further disc losure. Family History Family Member Name Family Member Gender Family Member Status Date o f Status Description Data Source(s) Unknown Unknown Problem MEDENT ([facility], ) Encounters Encounter Providers Location Date Indications Data Source(s ) Outpatient Attender: JANETH alejo 08/07/2020 02:30:00 PM EST MEDENT ([facility]) Outpatient Attender: Sharif Garcia/Lisa/Pancho/Bharath rivero 04/02/2020 08:30:00 AM EDT MEDENT ([facility]) Formerly [facility] [address] [place] [id number] 01/20/2020 12:00:00 AM EDT eCW1 ([facility]) Outpatient Attender: KASIA LESTER SR 12/19/2019 11:29:00 AM EDT [facility] 12/19/2019 12:00:00 AM EDT eCW1 ([facility]) Outpatient Attender: Nora Garcia/Lisa/Bin naqvi/Carlos Eduardo 12/13/2019 03:15:00 PM EDT MEDENT ([facility] Emergency Attender: Ham Bear RPA-CReferrer: TYE LESTER SR EMERGENCY ROOM-ER 12/10/2019 11:13:00 AM EDT - 12/10/2019 02:30:00 PM EDT [facility] Patient discharged. Outpatient Attender: KASIA LESTER SR 12/07/2019 11:30:00 AM EDT [facility] 12/07/2019 12:00:00 AM EDT eCW1 ([facility]) Outpatient Admitter: KASIA MIJARES MDReferrer: KASIA MIJARES MD 10/27/2019 12:00:00 AM EDT Ulcerative colitis, unspecified, without complications [facility] Ulcerative colitis, unspecified, without complications [facility] 10/27/2019 12:00:00 AM EDT eCW1 ([facility]) Outpatient Attender: Sharif Garcia/Lisa/Pancho/R eindl 09/21/2019 08:45:00 AM EDT MEDENT ([facility]) [facility] 09/06/2019 12:00:00 AM EDT eCW1 ([facility]) Outpatient Referrer: Isabel Hair NP 08/11/2019 07:21:00 PM EST [facility] Outpatient Attender: Nora Garcia/Lisa/Bin naqvi/Carlos Eduardo 07/13/2019 08:00:00 AM EST [facility] ([facility] Emergency Attender: SANA Collazo: KASIA Villatoro SR 05/25/2019 11:27:00 PM EST - 05/26/2019 12:10:00 AM EST [facility] Patient discharged. Emergency Attender: OLAYINKA Collazo: Darryn LESTER SR EMERGENCY ROOM-ER 06/05/2017 10:02:00 AM EST - 06/04/2017 02:04:00 PM [facility] Outpatient Attender: KASIA LESTER SRReferrer: KASIA Villatoro SR 05/15/2017 01:15:00 PM [facility] Outpatient Attender: GURPREET Barrazaerrer: KASIA LESTER SR 03/04/2017 09:32:00 AM [facility] Outpatient Attender: Yajaira Pati SENIOR ACCOUNTING SPECIALIST-C 04/03/2016 01:17:0 0 PM [facility] Outpatient Attender: Lucy CADENA 11/13/2015 10:00:00 AM [facility] Outpatient Attender: Lucy CADENA EMERGENCY ROOM-ULTRA 09/24/2015 09:34:00 AM [facility] Emergency Attender: BONITA MERCEReferrer: YUNG CLAY DO EMERGENCY ROOM-ER 03/25/2015 06:57:00 PM EDT - 03/25/2015 08:41:00 PM [facility] Emergency Attender: XU MERCEReferrer: ELODIA Steward DO 02/01/2015 10:06:00 AM EDT - 02/01/2015 12:20:00 PM [facility] Emergency Attender: CASSI Gilletteerrer: ELODIA CLAY DO EMERGENCY ROOM-ER 01/30/2015 10:36:00 AM EDT - 01/30/2015 11:58:00 AM [facility] Outpatient Attender: ELODIA Escobarer: ELODIA SCHAFFER DO 07/28/2014 02:46:00 PM [facility] Outpatient Attender: ELODIA Barrazaerrer: ELODIA SCHAFFER DO 12/12/2013 01:31:00 PM [facility] Outpatient Attender: ELODIA CLAY DO 01/13/2013 10:39:00 AM [facility] Medications Medication Brand Name Start Date Product Form Dose Route Admi nistrative Instructions Pharmacy Instructions Status Indications Reaction Description Data Source(s) 90 mcg/actuation 08/07/2020 12:00:00 AM EST HFA aerosol inha ler 8 INHALE TWO PUFFS EVERY FOUR TO SIX HOURS NEEDED FOR FOR SHORTNESS OF BREATH INHALE TWO PUFFS EVERY FOUR TO SIX HOURS NEEDED FOR FOR SHORTNESS OF BREATH SOLD: 08/07/2020 [facility] Prednisone 20 MG Oral Tablet Prednisone 08/07/2020 12:00:00 AM EST active MEDENT ([facility]) Doxycycline Monohydrate 100 MG Oral Tablet Doxycycline Monoh ydrate 08/07/2020 12:00:00 AM EST ORAL active M EDENT ([facility]) 100 mg 08/07/2020 12:00:00 AM EST capsule 20 TAKE ONE CAPSULE BY MOUTH TWICE A DAY FOR 10 DAYS TAKE ONE CAPSULE BY MOUTH TWICE A DAY FOR 10 DAYS SOLD : 08/07/2020 [facility] 20 mg 08/07/2020 12:00:00 AM EST tablet 18 TAKE ONE TABLET BY MOUTH THREE TIMES A DAY FOR 3 DAYS, THEN 1 TWO TIMES A DAY FOR 3 DAYS, THEN 1 ONCE A DAY FOR 3 DAYS TAKE ONE TABLET BY MOUTH THREE TIMES A D AY FOR 3 DAYS, THEN 1 TWO TIMES A DAY FOR 3 DAYS, THEN 1 ONCE A DAY FOR 3 DAYS SOLD: 08/07/2020 [facility] 500 mg 03/13/2020 12:00:00 AM EDT capsule 16 TAKE 4 CAPSULES BY MOUTH ONE HOUR PRIOR TO DENTAL APPOINTMENT TAKE 4 CAPSULES BY MOUTH ONE HOUR PRIOR TO DENTAL APPOINTMENT SOLD: 03/13/2020 [facility] montelukast 10 MG Oral Tablet MONTELUKAST SODIUM 12/19/2019 12:0 0:00 AM EDT tablet 30 TAKE ONE TABLET BY MOUTH EVERY D AY TAKE ONE TABLET BY MOUTH EVERY DAY SOLD: 02/17/2020 [facility] Metformin hydrochloride 500 MG Oral Tablet METFORMIN HCL 12/19/2019 12:00:00 AM EDT tablet 60 TAKE ONE TABLET BY MOUTH TWI CE A DAY WITH MEALS TAKE ONE TABLET BY MOUTH TWICE A DAY WITH MEALS SOLD: 03/26/2020 [facility] montelukast 10 MG Oral Tablet MONTELUKAST SODIUM 12/19/2019 12:0 0:00 AM EDT tablet 30 TAKE ONE TABLET BY MOUTH EVERY D AY TAKE ONE TABLET BY MOUTH EVERY DAY SOLD: 03/26/2020 [facility] montelukast 10 MG Oral Tablet MONTELUKAST SODIUM 12/19/2019 12:0 0:00 AM EDT tablet 30 TAKE ONE TABLET BY MOUTH EVERY D AY TAKE ONE TABLET BY MOUTH EVERY DAY SOLD: 06/07/2020 [facility] montelukast 10 MG Oral Tablet MONTELUKAST SODIUM 12/19/2019 12:0 0:00 AM EDT tablet 30 TAKE ONE TABLET BY MOUTH EVERY D AY TAKE ONE TABLET BY MOUTH EVERY DAY SOLD: 12/20/2019 [facility] Metformin hydrochloride 500 MG Oral Tablet METFORMIN HCL 12/19/2019 12:00:00 AM EDT tablet 60 TAKE ONE TABLET BY MOUTH TWI CE A DAY WITH MEALS TAKE ONE TABLET BY MOUTH TWICE A DAY WITH MEALS SOLD: 07/13/2020 [facility] Metformin hydrochloride 500 MG Oral Tablet METFORMIN HCL 12/19/2019 12:00:00 AM EDT tablet 60 TAKE ONE TABLET BY MOUTH TWI CE A DAY WITH MEALS TAKE ONE TABLET BY MOUTH TWICE A DAY WITH MEALS SOLD: 06/07/2020 [facility] montelukast 10 MG Oral Tablet [Singulair] Singulair 10 MG Si ngulair 10 MG 12/19/2019 12:00:00 AM EDT 1.0 {tablet} active Singulair 10 MG eCW1 ([facility]) montelukast 10 MG Oral Tablet MONTELUKAST SODIUM 12/19/2019 12:0 0:00 AM EDT tablet 30 TAKE ONE TABLET BY MOUTH EVERY D AY TAKE ONE TABLET BY MOUTH EVERY DAY SOLD: 07/13/2020 [facility] Metformin hydrochloride 500 MG Oral Tablet METFORMIN HCL 12/19/2019 12:00:00 AM EDT tablet 60 TAKE ONE TABLET BY MOUTH TWI CE A DAY WITH MEALS TAKE ONE TABLET BY MOUTH TWICE A DAY WITH MEALS SOLD: 02/17/2020 [facility] 500 mg 12/19/2019 12:00:00 AM EDT tablet 60 TAKE ONE TABLET BY MOUTH TWICE A DAY WITH MEALS TAKE ONE TABLET BY MOUTH TWICE A DAY WITH MEALS SOLD: 12/20/2019 [facility] Metformin hydrochloride 500 MG Oral Tablet METFORMIN HCL 12/19/2019 12:00:00 AM EDT tablet 60 TAKE ONE TABLET BY MOUTH TWI CE A DAY WITH MEALS TAKE ONE TABLET BY MOUTH TWICE A DAY WITH MEALS SOLD: 05/04/2020 [facility] 10 mg 12/10/2019 12:00:00 AM EDT tablet 18 TAKE 3 TABLETS BY MOUTH ONCE DAILY FOR 3 DAYS THEN TAKE 2 TABLETS ONCE DAILY FOR 3 DAYS THEN TAKE 1 TABLET ONCE DAILY FOR 3 DAYS TAKE 3 TABLETS BY MOUTH ONCE DAILY FOR 3 DAYS THEN TAKE 2 TABLETS ONCE DAILY FOR 3 DAYS THEN TAKE 1 TABLET ONCE DAILY FOR 3 DAYS SOLD: 12/11/2019 [facility] 20 mg 12/07/2019 12:00:00 AM EDT tablet 15 TAKE THREE TABLETS BY MOUTH EVERY DAY FOR 5 DAYS TAKE THREE TABLETS BY MOUTH EVERY DAY FOR 5 DAYS SOLD: 12/07/2019 [facility] 33 gauge 12/07/2019 12:00:00 AM EDT misc 100 USE DIRECTED FOUR TIMES A DAY AND NEEDED USE DIRECTED FOUR TIMES A DAY AND NEEDED SOLD: 12/07/2019 [facility] Cyclobenzaprine hydrochloride 10 MG Oral Tablet Cyclob enzaprine HCl 10 MG Cyclobenzaprine HCl 10 MG 12/07/2019 12:00:00 AM EDT 1.0 {tablet_as _needed} active Cyclobenzaprine HCl 10 MG eCW1 ([facility]) BLOOD SUGAR DIAGNOSTIC 12/07/2019 12:00:00 AM EDT strip 100 USE DIRECTED FOUR TIMES A DAY AND NEEDED IN VITRO USE DIRECTED FOUR TIMES A DAY AND NEEDED IN VITRO SOLD: 12/07/2019 [facility] Prednisone 20 MG Oral Tablet PredniSONE 20 MG PredniSONE 20 MG 12/07/2019 12:00:00 AM EDT 3.0 {tablet} active Pr edniSONE 20 MG eCW1 ([facility]) BLOOD-GLUCOSE METER 12/07/2019 12:00:00 AM EDT misc 1 USE DIRECTED FOUR TIMES A DAY AND NEEDED USE DIRECTED FOUR TIMES A DAY AND NEEDED SOLD: 12/07/2019 [facility] Cyclobenzaprine hydrochloride 10 MG Oral Tablet CYCLOBENZAPR INE HCL 12/07/2019 12:00:00 AM EDT tablet 60 TAKE ONE TABLET BY MOUTH UP TO THREE TIMES A DAY NEEDED TAKE ONE TABLET BY MOUTH UP TO THREE TIMES A DAY NE EDED SOLD: 12/07/2019 [facility] 1.2 gram 11/14/2019 12:00:00 AM EDT tablet,delayed release (DR/EC) 120 TAKE FOUR TABLETS BY MOUTH ONCE A DAY FOR COLITIS TAKE FOUR TABLETS BY MOUTH ONCE A DAY FOR COLITIS SOLD: 11/14/2019 [facility] 1.2 gram 11/14/2019 12:00:00 AM EDT tablet,delayed release (DR/EC) 120 TAKE FOUR TABLETS BY MOUTH ONCE A DAY FOR COLITIS TAKE FOUR TABLETS BY MOUTH ONCE A DAY FOR COLITIS SOLD: 01/12/2020 [facility] mesalamine 1200 MG Delayed Release Oral Tablet Mesalamine 11/12/2019 12:00:00 AM EDT ORAL active MEDENT ([facility], ) 500 mg 10/28/2019 12:00:00 AM EDT tablet 60 TAKE ONE TABLET BY MOUTH EVERY 12 HOURS WITH FOOD OR MILK NEEDED TAKE ONE TABLET BY MOUTH EVERY 12 HOURS WITH FOOD OR MILK NEEDED SOLD: 10/29/2019 [facility] 500 mg 10/28/2019 12:00:00 AM EDT tablet 60 TAKE ONE TABLET BY MOUTH EVERY 12 HOURS WITH FOOD OR MILK NEEDED TAKE ONE TABLET BY MOUTH EVERY 12 HOURS WITH FOOD OR MILK NEEDED SOLD: 06/07/2020 [facility] 20-25 mg 10/28/2019 12:00:00 AM EDT tablet 30 TAKE ONE TABLET BY MOUTH EVERY DAY TAKE ONE TABLET BY MOUTH EVERY DAY SOLD: 11/30/2019 [facility] 20-25 mg 10/28/2019 12:00:00 AM EDT tablet 30 TAKE ONE TABLET BY MOUTH EVERY DAY TAKE ONE TABLET BY MOUTH EVERY DAY SOLD: 06/07/2020 [facility] 20-25 mg 10/28/2019 12:00:00 AM EDT tablet 30 TAKE ONE TABLET BY MOUTH EVERY DAY TAKE ONE TABLET BY MOUTH EVERY DAY SOLD: 01/06/2020 [facility] 500 mg 10/28/2019 12:00:00 AM EDT tablet 60 TAKE ONE TABLET BY MOUTH EVERY 12 HOURS WITH FOOD OR MILK NEEDED TAKE ONE TABLET BY MOUTH EVERY 12 HOURS WITH FOOD OR MILK NEEDED SOLD: 01/06/2020 [facility] 20-25 mg 10/28/2019 12:00:00 AM EDT tablet 30 TAKE ONE TABLET BY MOUTH EVERY DAY TAKE ONE TABLET BY MOUTH EVERY DAY SOLD: 10/29/2019 [facility] 500 mg 10/28/2019 12:00:00 AM EDT tablet 60 TAKE ONE TABLET BY MOUTH EVERY 12 HOURS WITH FOOD OR MILK NEEDED TAKE ONE TABLET BY MOUTH EVERY 12 HOURS WITH FOOD OR MILK NEEDED SOLD: 07/13/2020 [facility] 20-25 mg 10/28/2019 12:00:00 AM EDT tablet 30 TAKE ONE TABLET BY MOUTH EVERY DAY TAKE ONE TABLET BY MOUTH EVERY DAY SOLD: 05/04/2020 [facility] 500 mg 10/28/2019 12:00:00 AM EDT tablet 60 TAKE ONE TABLET BY MOUTH EVERY 12 HOURS WITH FOOD OR MILK NEEDED TAKE ONE TABLET BY MOUTH EVERY 12 HOURS WITH FOOD OR MILK NEEDED SOLD: 03/26/2020 [facility] 20-25 mg 10/28/2019 12:00:00 AM EDT tablet 30 TAKE ONE TABLET BY MOUTH EVERY DAY TAKE ONE TABLET BY MOUTH EVERY DAY SOLD: 02/17/2020 [facility] 500 mg 10/28/2019 12:00:00 AM EDT tablet 60 TAKE ONE TABLET BY MOUTH EVERY 12 HOURS WITH FOOD OR MILK NEEDED TAKE ONE TABLET BY MOUTH EVERY 12 HOURS WITH FOOD OR MILK NEEDED SOLD: 02/17/2020 [facility] 20-25 mg 10/28/2019 12:00:00 AM EDT tablet 30 TAKE ONE TABLET BY MOUTH EVERY DAY TAKE ONE TABLET BY MOUTH EVERY DAY SOLD: 03/26/2020 [facility] 500 mg 10/28/2019 12:00:00 AM EDT tablet 60 TAKE ONE TABLET BY MOUTH EVERY 12 HOURS WITH FOOD OR MILK NEEDED TAKE ONE TABLET BY MOUTH EVERY 12 HOURS WITH FOOD OR MILK NEEDED SOLD: 05/04/2020 [facility] 20-25 mg 10/28/2019 12:00:00 AM EDT tablet 30 TAKE ONE TABLET BY MOUTH EVERY DAY TAKE ONE TABLET BY MOUTH EVERY DAY SOLD: 07/13/2020 [facility] 500 mg 10/27/2019 12:00:00 AM EDT tablet 60 TAKE ONE TABLET BY MOUTH TWICE A DAY WITH MEALS TAKE ONE TABLET BY MOUTH TWICE A DAY WITH MEALS SOLD: 10/29/2019 [facility] 500 mg 10/27/2019 12:00:00 AM EDT tablet 60 TAKE ONE TABLET BY MOUTH TWICE A DAY WITH MEALS TAKE ONE TABLET BY MOUTH TWICE A DAY WITH MEALS SOLD: 11/30/2019 [facility] 100 mcg/actuation 09/21/2019 12:00:00 AM EDT blister with de vice 30 INHALE 1 PUFF BY MOUTH ONCE DAILY INHALE 1 PUFF BY MOUTH ONCE DAILY SOLD: 09/21/2019 [facility] 90 mcg/actuation 09/21/2019 12:00:00 AM EDT HFA aerosol inha ler 18 INHALE TWO PUFFS BY MOUTH FOUR TIMES A DAY NEEDED INHALE TWO PUFFS BY MOUTH FOUR TIMES A DAY NEEDED SOLD: 09/21/2019 [facility] 420 gram 07/14/2019 12:00:00 AM EST recon soln 4000 TAKE PER DOCTOR'S INSTRUCTIONS FOR BOWEL PREP TAKE PER DOCTOR'S INSTRUCTIONS FOR BOWEL PREP SOLD: 07/20/2019 [facility] POLYETHYLENE GLYCOL 3350 105 MG/ML / Pot assium Chloride 0.92238 MEQ/ML / Sodium Bicarbonate 0.017 MEQ/ML / Sodium Chloride 0.0479 MEQ/ML Oral Solution [NuLytely] Nulytely With Flavor Packs 07/13/2019 12:00:00 AM EST completed MEDENT ([facility], ) Magnesium Hydroxide 80 MG/ML Oral Suspension Milk Of Magnesi a 07/13/2019 12:00:00 AM EST ORAL completed MEDENT ([facility], ) 500 mg 10/25/2018 12:00:00 AM EDT tablet 60 TAKE ONE TABLET BY MOUTH TWICE A DAY WITH MEALS TAKE ONE TABLET BY MOUTH TWICE A DAY WITH MEALS SOLD: 08/24/2019 [facility] 500 mg 10/25/2018 12:00:00 AM EDT tablet 60 TAKE ONE TABLET BY MOUTH EVERY 12 HOURS WITH FOOD OR MILK TAKE ONE TABLET BY MOUTH EVERY 12 HOURS WITH FOOD OR MILK SOLD: 09/21/2019 [facility] 500 mg 10/25/2018 12:00:00 AM EDT tablet 60 TAKE ONE TABLET BY MOUTH TWICE A DAY WITH MEALS TAKE ONE TABLET BY MOUTH TWICE A DAY WITH MEALS SOLD: 09/21/2019 [facility] 20-25 mg 10/25/2018 12:00:00 AM EDT tablet 30 TAKE ONE TABLET BY MOUTH EVERY DAY TAKE ONE TABLET BY MOUTH EVERY DAY SOLD: 08/24/2019 [facility] 20-25 mg 10/25/2018 12:00:00 AM EDT tablet 30 TAKE ONE TABLET BY MOUTH EVERY DAY TAKE ONE TABLET BY MOUTH EVERY DAY SOLD: 09/21/2019 [facility] 500 mg 10/25/2018 12:00:00 AM EDT tablet 60 TAKE ONE TABLET BY MOUTH EVERY 12 HOURS WITH FOOD OR MILK TAKE ONE TABLET BY MOUTH EVERY 12 HOURS WITH FOOD OR MILK SOLD: 08/24/2019 [facility] Insurance Providers Payer name Policy type / Coverage type Policy ID Covered democrat ID Covered democrat's relationship to perez Policy Perez Plan Information [employer] [facility] [id number] SP [id number] [facility] O [id number] S [id number] [employer] MCDHMO [id number] SP [id number] UNITED [employer]ALTHCARE MEDICAID [id number] S [id number] UNITED HEALTHCARE MEDICAID [id number] S [id number] UNITED HEALTHCARE MEDICAID [id number] S [id number] [facility] MEDICAID [id number] S [id number] UNITED [facility]CARE MEDICAID [id number] S [id number] [facility] MEDICAID [id number] S [id number] [id number] S [id number] [facility] MEDICAID [id number] S [id number] UNITED [employer] MEDICAID [id number] S [id number] [facility] MEDICAID [id number] S [id number] [facility] I [id number] Self [id number] UN COMMUNITY PLAN MCDHMO [id number] SP [id number] [facility] MEDICAID [id number] S [id number] [facility] MEDICAID [id number] S [id number] ANSI-Medicaid [id number] [facility] Health Maintenance Organization (HMO) [id number] Self [id number] Medicaid [place] Medigap Part B [id number] Self [id number] Ghi FHP-(DO Not Use) Medigap Part B [id number] Self [id number] [facility] Community Plan Medigap Part B [id number] Self [id number] BS Exchange (Epo,Hmo,Ppo) Medigap Part B [id number] Self [id number] [facility] Community Plan Commercial [id number] [address] [id number] [facility] MEDICAID [id number] S [id number] ANSI-Medicaid [id number] UNITED [facility] MEDICAID [id number] S [id number] [place] [id number] Self [id number] Ghi Medigap Part B [id number] Self [id number] [place] [id number] Self [id number] [employer] BCBS Medigap Part B [id number] Self [id number] [employer] BCBS Medigap Part B [id number] Self [id number] [facility] Health Maintenance Organization (HMO) [id number] Self [id number] [employer] Medigap Part B [id number] Self [id number] [facility] Medigap Part B [id number] Self [id number] [facility] Health Maintenance Organization (HMO) [id number] Self [id number] [place] [id number] Self [id number] Ghi Medigap Part B [id number] Self [id number] [place] [id number] Self [id number] [employer] Medigap Part B [id number] Self [id number] [facility] Medigap Part B [id number] Self [id number] [employer] Health Maintenance Organization (HMO) [id number] Self [id number] [place] [id number] Self [id number] Ghi Family Health Plus Commercial [id number] Self [id number] [place] [id number] Self [id number] BCBS Ppo Commercial [id number] Self [id number] BC/BS Family Health Plus Medigap Part B [id number] Self [id number] [facility] Community Plan Commercial [id number] Self [id number] [facility] Community Plan Commercial [id number] Self [id number] [facility] [place] Health Maintenance Organization (HMO) [id number] Self [id number] [facility] [id number] Self [id number] [place] Part [place] [id number] Self [id number] G[facility] Family Health Plus Commercial [id number] Self [id number] [place]ap Part [place] [id number] Self [id number] BCBS Ppo Commercial [id number] Self [id number] [facility] [place] Health Maintenance Organization (HMO) [id number] Self [id number] [facility] Health Maintenance Organization (HMO) [id number] Self [id number] [facility] [id number] SP [id number] [facility] Health Maintenance Organization (HMO) [id number] Self [id number] [facility] Health Maintenance Organization (HMO) [id number] Self [id number] [place] [id number] Self [id number] Ghi Family Health Plus Commercial [id number] Self [id number] [place] [id number] Self [id number] BCBS Ppo Commercial [id number] Self [id number] SELF PAY SP UNAVAILABLE S UNAVAILA BLE [place] Medig[place] Part B Self Ghi FHP-(DO Not Use) Medigap Part B Self [facility] Community Plan Medigap Part B Self BS Exchange (Epo,Hmo,Ppo) Medigap Part B Self [facility] Community [facility] Commercial Self [place] B Self [facility] Family Health Plus Commercial Self [place]ig[place] Part B Self BC/BS Family Health Plus Medigap Part B Self BCBS Ppo Commercial Self United Community Plan Commercial Self MEDICAID BREE [id number] S [id number] BC/BS Of [place] Medigap Part B Self [facility] Community Plan Medigap Part B Self BC/BS Of [place] Commercial Self [employer] BCBS P [id number] S [id number] UNITED HEALTHCARE(MCAID) P [id number] S [id number] UNITED HEALTHCARE P [id number] S [id number] UNITED HEALTHCARE [id number] SP [id number] UNITED HEALTHCARE(MCAID) P [id number] S [id number] MEDICAID P [id number] S [id number] SELF PAY SP [id number] S [id number] Problems, Conditions, and Diagnoses Code Display Name Description Problem Type Effective Dates Data Source(s) J45.41 [id number] Moderate persistent asthma with acute exacerbation Problem 12/19/2019 12:00:00 AM EDT eCW1 ([facility]) E66.9 [id number] Obesity (BMI 30-39.9) Problem 12/19/2019 12: 00:00 AM EDT eCW1 ([facility]) J45.20 [id number] Mild intermittent asthma, unspec ified whether complicated Problem 12/07/2019 12:00:00 AM EDT eCW1 ([facility]) Z71.2 Person consulting for explanation of exa mination or test findings PERSON CONSULTING FOR EXPLANATION OF EXAM OR TEST Diagnosis 12/19/2019 11:29: 00 AM [facility] E66.9 Obesity, unspecified OBESITY, UNSPECIFIED Diagnosis 12/19/2019 11:29:00 AM [facility] E11.9 Type 2 diabetes mellitus without complic ations TYPE 2 DIABETES MELLITUS WITHOUT COMPLICATIONS Diagnosis 12/19/2019 11:29:00 AM [facility] J45.41 Moderate persistent asthma with (acute) exacerbation MODERATE PERSISTENT ASTHMA WITH (ACUTE) EXACERBATION Diagnosis 12/19/2019 11:29:00 AM [facility] Z79.899 Other longterm (current) drug therapy O THER [facility] (CURRENT) DRUG THERAPY Diagnosis 12/10/2019 11:13:00 AM [facility] 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.84 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 (CURRENT) USE OF ORAL HYPOGLYC EMIC DRUGS 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 (CURRENT) USE OF ORAL HYPOGLYCEMIC DRUGS Diagnosis 12/10/2019 11:13:00 AM [facility] Z79.52 USP (current) use of systemic ster oids 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 (CURRENT) USE OF SYSTEMIC STEROIDS Diagnosis 12/10/2019 11:13:00 AM [facility] Z79.51 USP (current) use of inhaled stero ids 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 (CURRENT) USE OF INHALED STEROIDS Diagnosis 12/10/2019 11:13:00 AM [facility] 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 non-steroidal anti-inflammatories (NSAID) 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 (CURRENT) USE OF NON-STEROIDAL NON-INFLA Diagnosis 12/10/19 20 11:13:00 AM [facility] I10 Essential (primary) hypertension ESSENTIAL (PRIMARY) H YPERTENSION Diagnosis 12/10/2019 11:13:00 AM [facility] R06.00 Dyspnea, unspecified DYSPNEA, UNSPECIFIED Diagnosis 12/10/2019 11:13:00 AM [facility] Z71.89 Other specified counseling OTHER SPECIFIED COUNSELING Diagnosis 12/07/2019 11:30:00 AM [facility] M54.9 Dorsalgia, unspecified DORSALGIA, UNSPECIFIED Diagnosi s 12/07/2019 11:30:00 AM [facility] J45.20 Mild intermittent asthma, uncomplicated MILD INTERMITTENT ASTHMA, UNCOMPLICATED Diagnosis 12/07/2019 11:30:00 AM EDT [facility] K51.90 Ulcerative colitis, unspecified, without complications Ulcerative colitis, unspecified, without complications Diagnosis 10/27/2019 02:45:00 PM T [facility] Surgeries/Procedures Procedure Description Date Indications Data Source(s) Spirometry 04/02/2020 12:00:00 AM EDT M EDENT ([facility], ) Colonoscopy Flexible Proximal To Splenic Flexure W/Biopsy Si ngle/ 10/25/2019 12:00:00 AM EDT MEDENT ([facility] actice, ) APPLICATION CAST ELBOW FINGER SHORT ARM 07/04/2019 12: 00:00 AM EST MEDENT ([facility]) RADEX WRIST 2 VIEWS 07/04/2019 12:00:00 AM EST MED[facility] ([facility]) APPLICATION CAST ELBOW FINGER SHORT ARM 06/13/2019 12: 00:00 AM EST MED[facility] ([facility]) RADEX WRIST 2 VIEWS 06/13/2019 12:00:00 AM EST MEDENT ([facility]) Results ID Date Data Source [id number] 12/10/2019 06:53:00 PM EDT [facility]: ARABELLANEEL R eport - [facility]VisitID: [id number] [place] [address] [phone], FRegistration Date/Time: 12/10/2019 10:32 Weight:99.3 kg (S). Height/Length:63 inches (S). BMI:38.8 PAST HISTORYMedications:Naproxen Oral (Tablet Delayed Release 500 mg) 1 tablet, q12h, last dose 12/10/20191000.Advair Diskus Inhalation (Aerosol Powder Breath Activated 100-50 mcg/dose) 2 puffs, q4h as needed, last dose 12/10/20191000.Lisinopril-hydroCHLOROthiazide Oral (Tablet 20-25 mg) 1 tablet, daily, last dose 12/10/20191000.Lialda Oral (Tablet Delayed Release 1.2 gm) 4 tablets, daily, last dose 12/09/20192200.predniSONE Oral (Tablet 20 mg) 1 tablet, daily, last dose .Albuterol Sulfate Inhalation (Aerosol Powder Breath Activated 108 (90 Base) mcg/act) 2 puffs , as needed, last dose .MetFORMIN HCl Oral (Tablet 500 mg) 1 tablet, 2x a day, last dose . Allergies:Azithromycin. FAMILY HISTORYNo significant family medical history. (Electronically signed by Ham Bear PA 12/10/2019 18:47) Name Value Range Interpretation Code Description Data [facility] rce(s) Supporting Document(s) ID Date Data Source [id number] 12/10/2019 12:12:00 PM [facility] l TSYSORDER [id number] Name Value Range Interpretation Code Description Data [facility] rce(s) Supporting Document(s) TROPONIN I 0.025 ng/mL 0.0-0.056 [facility] ID Date Data Source [id number] 12/10/2019 12:12:00 PM EDT [facility] l TSYSORDER [id number] Name Value Range Interpretation Code Description Data [facility] rce(s) Supporting Document(s) GLUCOSE 276 mg/dL 74-106 H [facility] BLOOD UREA NITROGEN 17 mg/dL 7-18 [facility] ital CREATININE 0.7 mg/dL 0.6-1.0 [facility] SODIUM 132 mmol/L 136-145 L [facility] POTASSIUM 3.9 mmol/L 3.5-5.1 [facility] CHLORIDE 95 mmol/L 98-107 L [facility] CO2 28 mmol/L 21-32 [facility] CALCIUM 8.6 mg/dL 8.5-10.1 [facility] ANION GAP 9.0 mmol/L 5-12 [facility] GLOMERULAR FILTRATION RATE 86 mL/min [facility] GFR IS CALCULATED IN mL/min/1.73m2 KASSI L FUNCTION: >90MILDLY DECREASED: 60-89MILDY TO MODERATELY DECREASED: 45-59 MODERATELY TO SEVERELY DECREASED: 30-44SEVERELY DECREASED: 15-29RENAL FAILURE: <15 AST 36 U/L 15-37 [facility] ALT 63 U/L 12-78 [facility] ALKALINE PHOSPHATASE 89 U/L 46-116 [facility]ital TOTAL BILIRUBIN 0.5 mg/dL 0.2-1.0 [facility] TOTAL PROTEIN 6.8 g/dl 6.4-8.2 [facility] ALBUMIN 3.5 gm/dL 3.4-5.0 [facility] ID Date Data Source [id number] 12/10/2019 11:57:00 AM EDT [facility] TSYSORDER [id number] Name Value Range Interpretation Code Description Data Julissa rce(s) Supporting Document(s) WHITE BLOOD COUNT 9.3 K/mm3 4.0-10.0 [facility] RED BLOOD COUNT 4.05 M/mm3 4.00-5.50 [facility] l HEMOGLOBIN 10.9 gm/dL 12.0-16.0 L [facility] HEMATOCRIT 32.3 % 36.0-48.8 L [facility] MEAN CELL VOLUME 79.8 fl 80-96 L [facility] MEAN CORPUSCULAR HEMOGLOBIN 26.9 pg 27.0-31.0 L [facility] MEAN CORPUSCULAR HGB CONC 33.7 g/dl 32.0-36.0 [facility] RED CELL DISTRIBUTION WIDTH 12.7 % 10.0-14.5 [facility] PLATELET COUNT 386 K/mm3 172-450 [facility] MEAN PLATELET VOLUME 9.4 fl 9.0-13.0 [facility] GRAN % 85.9 % 50-80.0 H [facility] IG% 0.8 % 0.0-0.2 H [facility] LYMPH % 5.3 % 25.0-50.0 L [facility] MONO % 6.8 % 2.0-10.0 [facility] EOS % 1.0 % 0-5.0 [facility] BASO % 0.2 % 0.0-2.0 [facility] GRAN # 8.0 K/mm3 2.0-8.00 [facility] IG# 0.1 K/mm3 0.0-0.2 [facility] LYMPH # 0.5 K/mm3 1.0-5.0 L [facility] MONO # 0.6 K/mm3 0.10-1.20 [facility] EOS # 0.1 K/mm3 0.0-0.5 [facility] BASO # 0.0 K/mm3 0.0-0.2 [facility] ID Date Data Source [id number] 10/27/2019 02:47:00 PM EDT SHY ([facility], ) Name Value Range Interpretation Code Description Data Julissa rce(s) Supporting Document(s) Surgical Pathology Consult Laboratory test result MEDENT ([facility], ) Surgical Pathology Report Name: NEEL BELL Collection Date: 10/27/2019 00:00 Received Date: 10/27/2019 14:48 Physician(s): KASIA GONZALEZ MD HAGHIR, SHAHANDEH F, MD Specimen(s) Received A: Material received for consultation, GDLR Clinical History Screening. See colonoscopy report. Rule out IBD/ulcerative colitis. Diagnosis COLON, RANDOM BIOPSIES ([id number], 10/25/19): MILD CHRONIC ACTIVE COLITIS (See Microscopic Description). Electronically Signed By Elmer Quintanilla M.D., Attending Pathologist 11/04/2019 11:02:30 Gross Description Received from [facility] in [place], [place] are 2 H and E stained slides and one paraffin block labeled [id number] with the corresponding pathology report. /jrs Microscopic Description I completely agree with your diagnosis of chronic active colitis. Sections show mild acute cryptitis with focal crypt abscess formation, expansion of lamina propria by a mixed infiltrate and defintite evidence of architectural crypt distortion. There is also a collection of histiocytes near ruptured glands, but no evidence of discrete epithelioid granulomas to suggest Crohn's disease. While inflammatory bowel disease is certainly in differential diagnosis, the diagnosis of IBD should also be based on clinical history and endoscopic findings. Based on the provided endoscopy report, there are some abnormalities but they seem mild and nonspecific. Other cause of chronic active colitis, include certain infectious, diverticulitis and NSAID colitis. Thank you for letting me see this case in consultation. This report may include one or more immunohistochemical stain results that use analyte specific reagents. All positive and negative controls have been reviewed by the attending pathologist and are satisfactory. The tests were developed and their performance characteristics determined by [facility] Pathology department. They have not been cleared or approved by the [place] Food and Drug Administration. The FDA has determined that such clearance or approval is not necessary. ID Date Data Source [id number] 11/04/2019 11:02:00 AM [facility] Surgical Pathology ReportName: Dilan BELLMRN: [id number] Number: [id number] Date: 10/27/2019 00:00Received Date: 10/27/2019 14:48Physician(s): KASIA GONZALEZ MD HAGHIR, SHAHANDEH F, MDSpecimen(s) ReceivedA: Material received for consultation, GDLRClinical HistoryScreening. See colonoscopy report. Rule out IBD/ulcerative colitis. DiagnosisCOLON, RANDOM BIOPSIES ([id number], 10/25/19): MILD CHRONIC ACTIVE COLITIS(See Microscopic Description).Electronically Signed By Elmer Quintanilla M.D., Attending Pathologist11/04/2019 11:02:30 Gross DescriptionReceived from [facility] in [place], [place] are 2 H and Estained slides and one paraffin block labeled [id number] with thecorresponding pathology report./jrsMicroscopic DescriptionI completely agree with your diagnosis of chronic active colitis. Sectionsshow mild acute cryptitis with focal crypt abscess formation, expansion oflamina propria by a mixed infiltrate and defintite evidence ofarchitectural crypt distortion. There is also a collection of histiocytesnear ruptured glands, but no evidence of discrete epithelioid granulomasto suggest Crohn's disease. While inflammatory bowel disease is certainlyin differential diagnosis, the diagnosis of IBD should also be based onclinical history and endoscopic findings. Based on the provided endoscopyreport, there are some abnormalities but they seem mild and nonspecific.Other cause of chronic active colitis, include certain infectious,diverticulitis and NSAID colitis. Thank you for letting me see this casein consultation.This report may include one or more immunohistochemical stain results thatuse analyte specific reagents. All positive and negative controls havebeen reviewed by the attending pathologist and are satisfactory. The testswere developed and their performance charac teristics determined by [facility] Pathology department. They have not been cleared or approved by the USFood and Drug Administration. The FDA has determined that such clearanceor approval is not necessary. Name Value Range Interpretation Code Description Data Julissa rce(s) Supporting Document(s) ID Date Data Source [id number] 10/25/2019 08:21:00 AM EDT [facility] ([facility], ) Name Value Range Interpretation Code Description Data Jluissa rce(s) Supporting Document(s) Surgical pathology study Laboratory test result [facility] ([facility]) FINAL DIAGNOSIS Colon, random biopsies: Acute and chronic inflammation, consistent with mild chronic active colitis. Acute cryptitis, crypt abscesses, crypt architecture disarray and increase in the inflammatory infiltrate of lamina propria is noted in some of the submitted fragments. See note. Note: Focal loose collection of histiocytes and a rare giant cell is noted at the base of a ruptured crypt, which is not typical of Crohn's disease. No dysplasia is identified. Correlation with clinical history and colonoscopic finding is recommended to rule out an IBD/ulcerative colitis. Infections, diverticulitis and NSAID can also cause mild colitis. The case as well as colonoscopy report was also sent to [facility] for consultation. Please see complete consultation report [id number]. 10/28/2019 - 1049 CLINICAL DIAGNOSIS Change in bowel habits, abnormalities genetic testing 10/25/2019 - 1412 GROSS DIAGNOSIS Received in formalin labeled "random colon biopsies, R/O microscopic colitis" is a 1 x 0.3 x 0.3 cm aggregate of multiple mucosa fragments. All in one. - 10/26/2019 - 1020 PRELIMINARY DIAGNOSIS . 10/28/2019 - 1049 Signed Cedrick Garcia MD 10/26/2019 1437 (Prelim) Signed Cedrick Garcia MD 10/28/2019 1050 ID Date Data Source [id number] 07/18/2019 06:00:00 AM EST [facility] ([facility]) Name Value Range Interpretation Code Description Data Julissa rce(s) Supporting Document(s) Fats Neutral Laboratory test result Normal (applies to non -numeric results) [facility] ([facility]) <content>Normal (<60 Droplets/HPF)</cont ent>
<content></content> Fats Total Laboratory test result Normal (applies to non-n umeric results) [facility] ([facility]) <content>Normal (<100 Droplets/HPF)</con tent>
<content></content> ID Date Data Source [id number] 07/18/2019 06:00:00 AM EST [facility] ([facility]) Name Value Range Interpretation Code Description Data Julissa rce(s) Supporting Document(s) Calprotectin [Mass/mass] in Stool 184 ug/g 0-120 Above high no rmal [facility] ([facility], ) <content>Concentration Interpretatio n Follow-Up</content>
<content><16 - 50 ug/g Normal None</content>
<content>>50 -120 ug/g Borderline Re-evaluate in 4-6 weeks</content>
<content>>120 ug/g Abnormal Repeat as clinically</content>
<content>indicated</content>
<content>Performed at: RN - [facility]</content>
<content>[address], [place] [id number]</content>
<content>Foreign Service Teacher: Naheed Hussein MD, Phone: [phone]</content>
<content>Performed at: - [facility]</content>
<content>[address] [place] [phone]</content>
<content>Foreign Service Teacher: Adria Stoll MD, Phone: [phone]</content>
<content></content> Elastase.pancreatic [Mass/mass] in Stool Laboratory test result Normal (applies to non-numeric results) [facility] ([facility]) <content>Result Units: ug Elast./g</cont ent>
<content>Severe Pancreatic Insufficiency: <100</content>
<content>Moderate Pancreatic Insufficiency: 100 - 200</content>
<content>Normal: >200</content>
<content></content> ID Date Data Source [id number] 07/18/2019 06:00:00 AM EST [facility] ([facility], ) Name Value Range Interpretation Code Description Data Julisas rce(s) Supporting Document(s) Gastrointestinal (GI) Panel Laboratory test result [facility] ([facility], ) This Gastrointestinal PCR Panel detects the following bacteria, parasites and viruses: Campylobacter (jejuni, coli and upsaliensis), Clostridium difficile (toxin A/B), Plesiomonas shigelloides, Salmonella, Yersinia enterocolitica, Vibrio (parahaemolyticus, vulnificus and cholerae), Vibrio clolerae, Enteroaggregative E. coli (EAEC), Enteropathogenis E. coli (EPEC), Enterotoxigenic E. coli (ETEC) it/st, Shiga-like producing E. coli (STEC) stx1/stc2, E.coli O157, Shigella/Enteroinvasive E. coli (EIEC), Cryptosporidium, Cyclospora cayetanensis, Entamoeba histolytica, Giardia lamblia, Adenovirus F 40/41, Astrovirus, Norovirus GI/GII, Rotavirus A and Sapovirus (I, II, IV, V). NEGATIVE by MULTIPLEXED NUCLEIC ACID PCR Procedure Social History Code Duration Value Status Description Data Source(s ) Smoking 08/07/2020 12:00:00 AM EST Patient is a former smoker completed Patient is a former smoker [facility] ([facility]) Smoking 09/21/2019 12:00:00 AM EDT - 06/15/2001 12:00:00 AM EST Patient is a former smoker completed Patient is a former smoker [facility] ([facility], ) Vital Signs ID Date Data Source UNK Name Value Range Interpretation Code Description Data Source(s) Body mass index (BMI) [Ratio] 20.7 kg/m2 20.7 k g/m2 [facility] ([facility]) Body height 63 [in_i] 63 [in_i] [facility] ([facility]) 5'3" Body weight 117.00 [lb_av] 117.00 [lb_av] MEDEN T ([facility]) Body temperature 98.0 [degF] 98.0 [degF] [facility] ([facility]) Oxygen saturation in Arterial blood by Pulse oximetry 97 % 97 % [facility] ([facility]) Respiratory rate 18 /min 18 /min [facility] ( [facility]) Heart rate 93 /min 93 /min [facility] ([facility]) Diastolic blood pressure 97 mm[Hg] 97 mm[Hg] [facility] ([facility]) Systolic blood pressure 167 mm[Hg] 167 mm[Hg] [facility] Body surface area Derived from formula 2.01 m2 2.01 m2 [facility] ([facility]) Body weight 99.792 kg 99.792 kg [facility] ([facility]) [place] body weight 115 [lb_av] 115 [lb_av] MED[facility] T ([facility]) Body mass index (BMI) [Ratio] 39.0 kg/m2 39.0 k g/m2 [facility] ([facility]) Body weight 220.00 [lb_av] 220.00 [lb_av] [facility] T ([facility]) Body height 63 [in_i] 63 [in_i] [facility] ([facility]) 5'3" Body surface area Derived from formula 1.99 m2 1.99 m2 [facility] ([facility]) Body weight 97.070 kg 97.070 kg [facility] ([facility]) [place] body weight 115 [lb_av] 115 [lb_av] MED[facility] T ([facility]) Body mass index (BMI) [Ratio] 37.9 kg/m2 37.9 k g/m2 [facility] ([facility]) Body weight 214.00 [lb_av] 214.00 [lb_av] [facility] Body height 63 [in_i] 63 [in_i] [facility] ([facility]) 5'3" Oxygen saturation in Arterial blood by Pulse oximetry 97 % 97 % [facility] ([facility]) Room Air Heart rate 94 /min 94 /min [facility] ([facility]) Diastolic blood pressure 80 mm[Hg] 80 mm[Hg] [facility] ([facility]) Systolic blood pressure 130 mm[Hg] 130 mm[Hg] [facility] ([facility]) Body weight 214.0 [lb_av] 214.0 [lb_av] eCW1 ([facility]) Body height 62.25 [in_i] 62.25 [in_i] eCW1 ([facility]) Oxygen saturation in Arterial blood by Pulse oximetry 97 % 97 % eCW1 ([facility]) Respiratory rate 20 /min 20 /min eCW1 ([facility]) Heart rate 95 /min 95 /min eCW1 ([facility]) Body temperature 98.6 [degF] 98.6 [degF] eCW1 ( [facility]) Body mass index (BMI) [Ratio] 38.82 kg/m2 38.82 kg/m2 eCW1 ([facility]) Body weight 98.431 kg 98.431 kg [facility] ([facility], ) [place] body weight 115 [lb_av] 115 [lb_av] MEDEN T ([facility]) Body mass index (BMI) [Ratio] 38.4 kg/m2 38.4 k g/m2 [facility] ([facility]) Body weight 217.00 [lb_av] 217.00 [lb_av] MED[facility] T ([facility]) Body height 63 [in_i] 63 [in_i] [facility] ([facility]) 5'3" Diastolic blood pressure 72 mm[Hg] 72 mm[Hg] [facility] ([facility]) Systolic blood pressure 136 mm[Hg] 136 mm[Hg] [facility] Oxygen saturation in Arterial blood by Pulse oximetry 98 % 98 % eCW1 ([facility]) Respiratory rate 20 /min 20 /min eCW1 ([facility]) Heart rate 89 /min 89 /min eCW1 ([facility]) Body temperature 98.6 [degF] 98.6 [degF] eCW1 ( [facility]) Body mass index (BMI) [Ratio] 39.77 kg/m2 39.77 kg/m2 eCW1 ([facility]) Body weight 219.2 [lb_av] 219.2 [lb_av] eCW1 ([facility]) Body height 62.25 [in_i] 62.25 [in_i] eCW1 ([facility]) Body weight 95.710 kg 95.710 kg [facility] ([facility]) Body mass index (BMI) [Ratio] 37.4 kg/m2 37.4 k g/m2 [facility] ([facility]) Body weight 211.00 [lb_av] 211.00 [lb_av] MEDEN T ([facility]) Body height 63 [in_i] 63 [in_i] [facility] ([facility]) 5'3" Body temperature 98.3 [degF] 98.3 [degF] [facility] ([facility]) Oxygen saturation in Arterial blood by Pulse oximetry 97 % 97 % [facility] ([facility]) Room Air Heart rate 80 /min 80 /min [facility] ([facility]) Diastolic blood pressure 90 mm[Hg] 90 mm[Hg] [facility] ([facility]) Systolic blood pressure 130 mm[Hg] 130 mm[Hg] [facility] ([facility]) Body weight 97.978 kg 97.978 kg [facility] ([facility]) Body mass index (BMI) [Ratio] 38.3 kg/m2 38.3 k g/m2 [facility] ([facility]) Body weight 216.00 [lb_av] 216.00 [lb_av] [facility]) Body height 63 [in_i] 63 [in_i] [facility] ([facility]) 5'3" Diastolic blood pressure 84 mm[Hg] 84 mm[Hg] [facility] ([facility]) Systolic blood pressure 138 mm[Hg] 138 mm[Hg] [facility] ([facility]) Patient Treatment Plan of Care Planned Activity Planned Date Details Description Data Source (s) montelukast 10 MG Oral Tablet [Singulair] 12/19/2019 12:00:00 AM ED T eCW1 ([facility]) Prednisone 20 MG Oral Tablet 12/07/2019 12:00:00 AM EDT eCW1 ([facility]) Cyclobenzaprine hydrochloride 10 MG Oral Tablet 12/07/2019 12:00:00 AM EDT eCW1 ([facility])
--- OUTSIDE RECORDS SUMMARY | 2020-08-08 18:30 | CCD ---
Continuity of Care Document (CCD) Created on: 08/07/2020 Evy Patterson External Reference #: [id number] Sex: Female Author Author Evy SEVILLA [place] Organization Unknown Address [address] [place] [address] [place] [address] Phone [phone] Care Team Providers Care Museum Service Scheduler Name Role Phone [facility] AUTM [phone] Problems Description No Information Available Social History [...]
[2020-08-08 19:18] LABS: BASO % 0.1 % (0.0-1.0); HEMATOCRIT 38.8 % (36.0-47.0); HEMOGLOBIN 12.8 g/dl (12.0-15.5); LYMPH # 0.7 10^3/uL (1.5-5.0); MEAN CORPUSCULAR HEMOGLOBIN 27.2 pg (27.0-33.0); MEAN CORPUSCULAR VOLUME 82.6 fl (80.0-96.0); MONO # 0.4 10^3/uL (0.0-0.8); MONO % 4.3 % (2.0-8.0); NEUTROPHILS # 7.1 10^3/uL (1.5-8.5); PLATELET COUNT, AUTOMATED 331 10^3/uL (150-450); WHITE BLOOD COUNT 8.2 10^3/uL (4.0-10.0)
[2020-08-08 19:44] LABS: ALBUMIN 3.7 GM/DL (3.2-5.2); ALT/SGPT 50 U/L (12-78); BILIRUBIN,TOTAL 0.5 MG/DL (0.2-1.0); BLOOD UREA NITROGEN 15 MG/DL (7-18); CARBON DIOXIDE LEVEL 26 MEQ/L (21-32); CHLORIDE LEVEL 100 MEQ/L (98-107); CK-MB VALUE MASS < 1.0 NG/ML (<3.6); CPK CREATINE PHOSPHOKINASE 85 U/L (26-192); CREATININE FOR GFR 0.88 MG/DL (0.55-1.30); FERRITIN 156 NG/ML (8-252); GLOMERULAR FILTRATION RATE > 60.0 (>51); GLUCOSE, FASTING 405 MG/DL (70-100); LDH LACTATE DEHYDROGENASE 185 U/L (84-246); MB/CK RELATIVE INDEX 1.18 (< OR =4); POTASSIUM SERUM 4.7 MEQ/L (3.5-5.1); SODIUM LEVEL 135 MEQ/L (136-145); TOTAL PROTEIN 7.2 GM/DL (6.4-8.2); TROPONIN I < 0.02 NG/ML (< 0.10)
[2020-08-08 20:07] VITALS: BP 178/80
--- OUTSIDE RECORDS SUMMARY | 2020-08-08 20:20 | CCD ---
Author Author [facility] Organization [facility] Address Unknown Phone Unavailable Care Team Providers Care Coal Shooter Name Role Phone PETROFF XU PA Unavailable [...] PA Unavailable Unavailable Pati, Reginah W Yajaira CONSULTING PRACTICE DIRECTOR-C Unavailable Unavailabl e Pati, Regelhamh W Yajaira CONSULTING PRACTICE DIRECTOR-C Unavailable Unavailabl e Pati, Reginah W Yajaira CONSULTING PRACTICE DIRECTOR-C Unavailable Unavailabl e Pati, Reginah W Yajaira CONSULTING PRACTICE DIRECTOR-C Unavailable Unavailabl e Pati, Reginah W Yajaira CONSULTING PRACTICE DIRECTOR-C Unavailable Unavailabl e Pati, Reginah W Yajaira CONSULTING PRACTICE DIRECTOR-C Unavailable Unavailabl e Pati, Lukeinachevy W Yajaira CONSULTING PRACTICE DIRECTOR-C Unavailable Unavailabl e Pati, Lukeinachevy W Yajaira CONSULTING PRACTICE DIRECTOR-C Unavailable Unavailabl e Pati, Zhang W Yajaira CONSULTING PRACTICE DIRECTOR-C Unavailable Unavailabl e Pati, Zhang W Yajaira CONSULTING PRACTICE DIRECTOR-C Unavailable Unavailabl e Pati, Reginachevy W Yajaira CONSULTING PRACTICE DIRECTOR-C Unavailable Unavailabl e Pati, Zhang W Yajaira CONSULTING PRACTICE DIRECTOR-C Unavailable Unavailabl e Pati, Zhang W Yajaira CONSULTING PRACTICE DIRECTOR-C Unavailable Unavailabl e Pati, Lukeinachevy W Yajaira CONSULTING PRACTICE DIRECTOR-C Unavailable Unavailabl e Pati, Zhang W Yajaira CONSULTING PRACTICE DIRECTOR-C Unavailable Unavailabl e Pati, Zhang W Yajaira CONSULTING PRACTICE DIRECTOR-C Unavailable Unavailabl e Pati, Zhang W Yajaira CONSULTING PRACTICE DIRECTOR-C Unavailable Unavailabl e Pati, Zhang W Yajaira CONSULTING PRACTICE DIRECTOR-C Unavailable Unavailabl e Pati, Zhang W Yajaira CONSULTING PRACTICE DIRECTOR-C Unavailable Unavailabl e Pati, Zhang W Yajaira CONSULTING PRACTICE DIRECTOR-C Unavailable Unavailabl e Pati, Zhang W Yajaira CONSULTING PRACTICE DIRECTOR-C Unavailable Unavailabl e Pati, Zhang W Yajaira CONSULTING PRACTICE DIRECTOR-C Unavailable Unavailabl e Pati, Zhang W Yajaira CONSULTING PRACTICE DIRECTOR-C Unavailable Unavailabl e Pati, Regradha W Yajaira CONSULTING PRACTICE DIRECTOR-C Unavailable Unavailabl e Pati, Regradha W Yajaira CONSULTING PRACTICE DIRECTOR-C Unavailable Unavailabl e Pati, Reginachevy W Yajaira CONSULTING PRACTICE DIRECTOR-C Unavailable Unavailabl e Pati, Regina W Yajaira CONSULTING PRACTICE DIRECTOR-C Unavailable Unavailabl e Pati, Reginachevy W Yajaira CONSULTING PRACTICE DIRECTOR-C Unavailable Unavailabl e Pati, Regradha W Yajaira CONSULTING PRACTICE DIRECTOR-C Unavailable Unavailabl e Pati, Regelham W Yajaira CONSULTING PRACTICE DIRECTOR-C Unavailable Unavailabl e Pati, Regina W Yajaira CONSULTING PRACTICE DIRECTOR-C Unavailable Unavailabl e Pati, Regina W Yajaira CONSULTING PRACTICE DIRECTOR-C Unavailable Unavailabl e REINDL, KASIA GRECO Unavailable [...] Unavailable Bright Cabrera MD Unavailable Unavailable Bright aCbrera MD Unavailable Unavailable Bright Cabrera MD Unavailable [...] Unavailable Unavailable Bright Cabrera MD Unavailable Unavailable Brigth Cabrera MD Unavailable Unavailable Bright Cabrera MD [...] Lucy PA Unavailable Unavailable Laxmi, L Isabel LINE TENDER FLAKEBOARD Unavailable Unavailable Laxmi, L Isabel LINE TENDER FLAKEBOARD Unavailable Unavailable Laxmi, L Isabel LINE TENDER FLAKEBOARD Unavailable Unavailable Laxmi, L Isabel LINE TENDER FLAKEBOARD Unavailable Unavailable Laxmi, L Isabel LINE TENDER FLAKEBOARD Unavailable Unavailable Laxmi, L Isabel LINE TENDER FLAKEBOARD Unavailable Unavailable Laxmi, L Isabel LINE TENDER FLAKEBOARD Unavailable Unavailable Laxmi, L Isabel LINE TENDER FLAKEBOARD Unavailable Unavailable Laxmi, L Isabel LINE TENDER FLAKEBOARD Unavailable Unavailable Laxmi, L Isabel LINE TENDER FLAKEBOARD Unavailable Unavailable Laxmi, L Isabel LINE TENDER FLAKEBOARD Unavailable Unavailable Laxmi, L Isabel LINE TENDER FLAKEBOARD Unavailable Unavailable Laxmi, L Isabel LINE TENDER FLAKEBOARD Unavailable Unavailable Laxmi, L Isabel LINE TENDER FLAKEBOARD Unavailable Unavailable Laxmi, L Isabel LINE TENDER FLAKEBOARD Unavailable Unavailable Laxmi, L Isabel LINE TENDER FLAKEBOARD Unavailable Unavailable Laxmi, L Isabel LINE TENDER FLAKEBOARD Unavailable Unavailable Laxmi, L Isabel LINE TENDER FLAKEBOARD Unavailable Unavailable Laxmi, L Isabel LINE TENDER FLAKEBOARD Unavailable Unavailable Laxmi, L Isabel LINE TENDER FLAKEBOARD Unavailable Unavailable Laxmi, L Isabel LINE TENDER FLAKEBOARD Unavailable Unavailable Laxim, L Isabel LINE TENDER FLAKEBOARD Unavailable Unavailable Re-disclosure Warning The records that [...] is protected by Article 27-F of the [facility] Public Health law. If you continue you may have access to information: Regarding HIV / AIDS; Provided by facilities licensed or operated by the [facility] Office of Mental Health; or Provided by the [facility] Office for People With Developmental Disabilities. If such information is present, then the following [facility] mandated warning applies: This information has [...] law may result in a fine or fdc sentence or both. A general authorization for the release of medical or other information is NOT sufficient authorization for further disc losure. Family History Family Member Name Family Member Gender Family Member Status Date o f Status Description Data Source(s) Unknown Unknown Problem MEDENT ([facility], ) Encounters Encounter Providers Location Date Indications Data Source(s ) Outpatient Attender: JANETH alejo 08/07/2020 02:30:00 PM EST MEDENT ([facility] Outpatient Attender: Sharif Garcia/Lisa/Pancho/Bharath rivero 04/02/2020 08:30:00 AM EDT MEDENT ([facility]) [facility] [address] [place] [phone] 01/20/2020 12:00:00 AM EDT eCW1 ([facility]) Outpatient Attender: KASIA LESTER SR 12/19/2019 11:29:00 AM EDT [facility] Outpatient COUNTS INCLUDE 234 BEDS AT THE [facility] 12/19/2019 12:00:00 AM EDT eCW1 ([facility]) Outpatient Attender: Nora Garcia/Lisa/Bin naqvi/Carlos Eduardo 12/13/2019 03:15:00 PM EDT MEDENT ([facility]) Emergency Attender: Ham Bear RPA-CReferrer: TYE LESTER SR EMERGENCY ROOM-ER 12/10/2019 11:13:00 AM EDT - 12/10/2019 02:30:00 PM EDT [facility] Patient discharged. Outpatient Attender: KASIA LESTER SR 12/07/2019 11:30:00 AM EDT [facility] Outpatient COUNTS INCLUDE 234 BEDS AT THE [facility] 12/07/2019 12:00:00 AM EDT eCW1 ([facility]) Outpatient Admitter: KASIA MIJARES MDReferrer: KASIA MIJARES MD 10/27/2019 12:00:00 AM EDT Ulcerative colitis, unspecified, without complications [facility] Ulcerative colitis, unspecified, without complications [facility] 10/27/2019 12:00:00 AM EDT eCW1 ([facility]) Outpatient Attender: Sharif Garcia/Lisa/Pancho/R eindl 09/21/2019 08:45:00 AM EDT MEDENT ([facility] EN[facility] 09/06/2019 12:00:00 AM EDT eCW1 ([facility]) Outpatient Referrer: Isabel Hair NP 08/11/2019 07:21:00 PM EST [facility] Outpatient Attender: Nora Garcia/Lisa/Bin naqvi/Carlos Eduardo 07/13/2019 08:00:00 AM EST MEDENT ([facility]) Emergency Attender: SANA Collazo: KASIA Villatoro SR 05/25/2019 11:27:00 PM EST - 05/26/2019 12:10:00 AM EST [facility] Patient discharged. Emergency Attender: OLAYINKA Collazo: Darryn LESTER SR EMERGENCY ROOM-ER 06/05/2017 10:02:00 AM EST - 06/04/2017 02:04:00 PM [facility] Outpatient Attender: KASIA LESTER SRReferrer: KASIA Villatoro SR 05/15/2017 01:15:00 PM [facility] Outpatient Attender: GURPREET Barrazaerrer: KASIA LESTER SR 03/04/2017 09:32:00 AM [facility] Outpatient Attender: Yajaira Pati CONSULTING PRACTICE DIRECTOR-C 04/03/2016 01:17:0 0 PM [facility] Outpatient Attender: Lucy CADENA 11/13/2015 10:00:00 AM [facility] Outpatient Attender: Lucy CADENA EMERGENCY ROOM-ULTRA 09/24/2015 09:34:00 AM [facility] Emergency Attender: BONITA MERCEReferrer: YUNG CLAY DO EMERGENCY ROOM-ER 03/25/2015 06:57:00 PM EDT - 03/25/2015 08:41:00 PM [facility] Emergency Attender: XU MERCEReferrer: ELODIA Steward DO 02/01/2015 10:06:00 AM EDT - 02/01/2015 12:20:00 PM [facility] Emergency Attender: CASSI Gilletteerrer: ELODIA CLAY DO EMERGENCY ROOM-ER 01/30/2015 10:36:00 AM EDT - 01/30/2015 11:58:00 AM [facility] Outpatient Attender: ELODIA Escobarer: ELODIA SCHAFFER DO 07/28/2014 02:46:00 PM [facility] Outpatient Attender: ELODIA Barrazaerrer: ELODIA SCHAFFER DO 12/12/2013 01:31:00 PM [facility] Outpatient Attender: ELODIA CLAY DO 01/13/2013 10:39:00 AM [facility] Medications Medication Brand Name Start Date Product [...] Prednisone 08/07/2020 12:00:00 AM EST active MEDENT ([facility]) Doxycycline Monohydrate 100 MG Oral Tablet Doxycycline Monoh ydrate 08/07/2020 12:00:00 AM EST ORAL active M EDENT ([facility]) 100 mg 08/07/2020 12:00:00 AM EST capsule [...] 1.0 {tablet} active Singulair 10 MG eCW1 ([facility]) montelukast 10 MG Oral [...] _needed} active Cyclobenzaprine HCl 10 MG eCW1 ([facility]) BLOOD SUGAR DIAGNOSTIC 12/07/2019 12:00:00 AM EDT strip 100 USE DIRECTED FOUR TIMES A DAY AND NEEDED IN VITRO USE DIRECTED FOUR TIMES A DAY AND NEEDED IN VITRO SOLD: 12/07/2019 Mariana opol Prednisone 20 MG Oral Tablet PredniSONE 20 MG PredniSONE 20 MG 12/07/2019 12:00:00 AM EDT 3.0 {tablet} active Pr edniSONE 20 MG eCW1 ([facility]) BLOOD-GLUCOSE METER 12/07/2019 12:00:00 AM EDT misc [...] 11/12/2019 12:00:00 AM EDT ORAL active MEDENT ([facility], ) 500 mg 10/28/2019 12:00:00 AM EDT [...] 3350 105 MG/ML / Pot assium Chloride 0.53358 MEQ/ML / Sodium Bicarbonate 0.017 MEQ/ML / Sodium Chloride 0.0479 MEQ/ML Oral Solution [NuLytely] Nulytely With Flavor Packs 07/13/2019 12:00:00 AM EST completed MEDENT ([facility], ) Magnesium Hydroxide 80 MG/ML Oral Suspension Milk Of Magnesi a 07/13/2019 12:00:00 AM EST ORAL completed MEDENT ([facility], ) 500 mg 10/25/2018 12:00:00 AM EDT [...] relationship to perez Policy Perez Plan Information [facility] COMMUNITY PLAN [facility] [id number] SP [id number] [facility] O [id number] S [id number] [facility] COMMUNITY PLAN MCDHMO [id number] SP [id number] [facility] MEDICAID [id number] S [id number] [facility] MEDICAID [id number] S [id number] [facility] MEDICAID [id number] S [id number] [facility] MEDICAID [id number] S [id number] [facility] MEDICAID [id number] S [id number] [facility] MEDICAID [id number] S [id number] [place] [id number] S YNE [id number] [facility] [id number] S [id number] [facility] MEDICAID [id number] S [id number] [facility] [id number] S [id number] [facility] I [id number] Self [id number] UN COMMUNITY PLAN MCDHMO [id number] SP [id number] [facility] [id number] S [id number] [facility] [id number] S [id number] ANSI-Medicaid [id number] [facility] Health Maintenance Organization (HMO) [id number] Self [id number] Medicaid [place] Medigap Part B [id number] Self [id number] Ghi FHP-(DO Not Use) Medigap Part B [id number] Self [id number] [facility] Community Plan Medigap Part B [id number] Self [id number] BS Exchange (Epo,Hmo,Ppo) Medigap Part B [id number] Self [id number] [facility] Community Plan Commercial [id number] Self [id number] [facility] [id number] S [id number] ANSI-Medicaid [id number] [facility] MEDICAID [id number] S [id number] [place] Part [place] [id number] Self [id number] Ghi Medigap Part B [id number] Self [id number] [place] Part [place] [id number] Self [id number] Excell[employer] BCBS Medigap Part B [id number] Self [id number] [employer] BCBS Medigap Part B [id number] Self [id number] [facility] Health Maintenance Organization (HMO) [id number] Self [id number] [employer] BCBS Medigap Part B [id number] Self [id number] [facility] Medigap Part B [id number] Self [id number] [facility] [place] Health Maintenance Organization (HMO) [id number] Self [id number] [place] [id number] Self [id number] Ghi Medigap Part B [id number] Self [id number] [place] [id number] Self [id number] [employer] BCBS Medigap Part B [id number] Self [id number] [facility] Medigap Part B [id number] Self [id number] [employer] Health Maintenance Organization (HMO) [id number] Self [id number] [place] Med[place] Part [place] [id number] Self [id number] Ghi Family Health Plus Commercial [id number] Self [id number] [place] [id number] Self [id number] BCBS Ppo Commercial [id number] Self [id number] BC/BS Family Health Plus Medigap Part B [id number] Self [id number] [facility] Community Plan Commercial [id number] Self [id number] [facility] Community Plan Commercial [id number] Self [id number] [facility] [place] Health Maintenance Organization (HMO) [id number] Self [id number] [facility] [id number] Self [id number] [place] Part [place] [id number] Self [id number] Ghi Family Health Plus Commercial [id number] Self [id number] [place] Medig[place] Part B [id number] Self [id number] BCBS Ppo Commercial [id number] Self [id number] [facility] [place] Health Maintenance Organization (HMO) [id number] Self [id number] [facility] [place] Health Maintenance Organization (HMO) [id number] Self [id number] [facility] COMMUNITY PLAN [facility] [id number] SP [id number] [facility] Health Maintenance Organization (HMO) [id number] Self [id number] [facility] Health Maintenance Organization (HMO) [id number] Self [id number] [place] Part [place] [id number] Self [id number] Ghi Family Health Plus Commercial [id number] Self [id number] [place]ig[place] Part B [id number] Self [id number] BCBS Ppo Commercial [id number] Self [id number] SELF PAY SP UNAVAILABLE S UNAVAILA BLE [...] United Community Plan Commercial Self MEDICAID BREE [id number] S [id number] BC/[place] Medigap Part B Self [id number] Community Plan Medigap Part B Self BC/BS [place] Commercial Self EXCELLUS BCBS P [id number] S [id number] UNITED HEALTHCARE(MCAID) P [id number] S [id number] UNITED HEALTHCARE P [id number] S [id number] UNITED HEALTHCARE [id number] SP [id number] UNITED HEALTHCARE(MCAID) P [id number] S [id number] MEDICAID P [id number] S [id number] SELF PAY SP [id number] S [id number] Problems, Conditions, and Diagnoses Code Display Name Description Problem Type Effective Dates Data Source(s) J45.41 [id number] Moderate persistent asthma with acute exacerbation Problem 12/19/2019 12:00:00 AM EDT eCW1 ([facility]) E66.9 [id number] Obesity (BMI 30-39.9) Problem 12/19/2019 12: 00:00 AM EDT eCW1 ([facility]) J45.20 [id number] Mild intermittent asthma, unspec ified whether complicated Problem 12/07/2019 12:00:00 AM EDT eCW1 ([facility]) Z71.2 Person consulting for explanation of exa mination or test findings PERSON CONSULTING FOR EXPLANATION OF EXAM OR TEST Diagnosis 12/19/2019 11:29: 00 AM [facility] E66.9 Obesity, unspecified OBESITY, UNSPECIFIED Diagnosis 12/19/2019 11:29:00 AM [facility] E11.9 Type 2 diabetes mellitus without complic ations TYPE 2 DIABETES MELLITUS WITHOUT COMPLICATIONS Diagnosis 12/19/2019 11:29:00 AM [facility] J45.41 Moderate persistent asthma with (acute) exacerbation MODERATE PERSISTENT ASTHMA WITH (ACUTE) EXACERBATION Diagnosis 12/19/2019 11:29:00 AM [facility] Z79.899 Other fdc (current) drug therapy O THER SNF (CURRENT) DRUG THERAPY Diagnosis 12/10/2019 11:13:00 AM [facility] Z79.84 SHAKE LOADER (CURRENT) USE OF ORAL HYPOGLYC EMIC DRUGS SHAKE LOADER (CURRENT) USE OF ORAL HYPOGLYCEMIC DRUGS Diagnosis 12/10/2019 11:13:00 AM [facility] Z79.52 custodial (current) use of systemic ster oids SHAKE LOADER (CURRENT) USE OF SYSTEMIC STEROIDS Diagnosis 12/10/2019 11:13:00 AM [facility] Z79.51 custodial (current) use of inhaled stero ids SHAKE LOADER (CURRENT) USE OF INHALED STEROIDS Diagnosis 12/10/2019 11:13:00 AM [facility] Z79.1 director long term care (current) use of non-steroidal anti-inflammatories (NSAID) SHAKE LOADER (CURRENT) USE OF NON-STEROIDAL NON-INFLA Diagnosis 12/10/19 20 11:13:00 AM [facility] I10 Essential (primary) hypertension ESSENTIAL (PRIMARY) H YPERTENSION Diagnosis 12/10/2019 11:13:00 AM [facility] R06.00 Dyspnea, unspecified DYSPNEA, UNSPECIFIED Diagnosis 12/10/2019 11:13:00 AM [facility] Z71.89 Other specified counseling OTHER SPECIFIED COUNSELING Diagnosis 12/07/2019 11:30:00 AM [facility] M54.9 Dorsalgia, unspecified DORSALGIA, UNSPECIFIED Diagnosi s 12/07/2019 11:30:00 AM [facility] J45.20 Mild intermittent asthma, uncomplicated MILD INTERMITTENT ASTHMA, UNCOMPLICATED Diagnosis 12/07/2019 11:30:00 AM [facility] K[facility]90 Ulcerative colitis, unspecified, without complications Ulcerative colitis, unspecified, without complications Diagnosis 10/27/2019 02:45:[address] [facility] Surgeries/Procedures Procedure Description Date Indications Data Source(s) Spirometry 04/02/2020 12:00:00 AM EDT M EDENT ([facility], ) Colonoscopy Flexible Proximal To Splenic Flexure W/Biopsy Si ngle/ 10/25/2019 12:00:00 AM EDT MEDENT ([facility], ) APPLICATION CAST ELBOW FINGER SHORT ARM 07/04/2019 12: 00:00 AM EST MEDENT ([facility]) RADEX WRIST 2 VIEWS 07/04/2019 12:00:00 AM EST MEDENT ([facility]) APPLICATION CAST ELBOW FINGER SHORT ARM 06/13/2019 12: 00:00 AM EST MEDENT ([facility]) RADEX WRIST 2 VIEWS 06/13/2019 12:00:00 AM EST MEDENT ([facility]) Results ID Date Data Source [id number] 12/10/2019 06:53:00 PM EDT [facility]: ARABELLANEEL R [facility]VisitID: [id number] [place] [address] [phone], FRegistration Date/Time: 12/10/2019 10:32 Weight:99.3 kg (S). [...] Name Value Range Interpretation Code Description Data [facility] rce(s) Supporting Document(s) ID Date Data Source [id number] 12/10/2019 12:12:00 PM [facility] l TSYSORDER [id number] Name Value Range Interpretation Code Description Data [facility] rce(s) Supporting Document(s) TROPONIN I 0.025 ng/mL 0.0-0.056 [facility] ID Date Data Source [id number] 12/10/2019 12:12:00 PM EDT [facility] l TSYSORDER [id number] Name Value Range Interpretation Code Description Data [facility] rce(s) Supporting Document(s) GLUCOSE 276 mg/dL 74-106 H [facility] BLOOD UREA NITROGEN 17 mg/dL 7-18 [facility] ital CREATININE 0.7 mg/dL 0.6-1.0 [facility] SODIUM 132 mmol/L 136-145 L [facility] POTASSIUM 3.9 mmol/L 3.5-5.1 [facility] CHLORIDE 95 mmol/L 98-107 L [facility] CO2 28 mmol/L 21-32 [facility] CALCIUM 8.6 mg/dL 8.5-10.1 [facility] ANION GAP 9.0 mmol/L 5-12 [facility] GLOMERULAR FILTRATION RATE 86 mL/min [facility] GFR IS CALCULATED IN mL/min/1.73m2 KASSI L FUNCTION: >90MILDLY DECREASED: 60-89MILDY TO MODERATELY DECREASED: 45-59 MODERATELY TO SEVERELY DECREASED: 30-44SEVERELY DECREASED: 15-29RENAL FAILURE: <15 AST 36 U/L 15-37 [facility] ALT 63 U/L 12-78 [facility] ALKALINE PHOSPHATASE 89 U/L 46-116 [facility] TOTAL BILIRUBIN 0.5 mg/dL 0.2-1.0 [facility] TOTAL PROTEIN 6.8 g/dl 6.4-8.2 [facility] ALBUMIN 3.5 gm/dL 3.4-5.0 [facility] ID Date Data Source [id number] 12/10/2019 11:57:00 AM EDT [facility] TSYSORDER [id number] Name Value Range Interpretation Code Description Data Julissa rce(s) Supporting Document(s) WHITE BLOOD COUNT 9.3 K/mm3 4.0-10.0 [facility] RED BLOOD COUNT 4.05 M/mm3 4.00-5.50 [facility] l HEMOGLOBIN 10.9 gm/dL 12.0-16.0 L [facility] HEMATOCRIT 32.3 % 36.0-48.8 L [facility] MEAN CELL VOLUME 79.8 fl 80-96 L [facility] MEAN CORPUSCULAR HEMOGLOBIN 26.9 pg 27.0-31.0 L [facility] MEAN CORPUSCULAR HGB CONC 33.7 g/dl 32.0-36.0 [facility] RED CELL DISTRIBUTION WIDTH 12.7 % 10.0-14.5 [facility] PLATELET COUNT 386 K/mm3 172-450 [facility] MEAN PLATELET VOLUME 9.4 fl 9.0-13.0 [facility] GRAN % 85.9 % 50-80.0 H [facility] IG% 0.8 % 0.0-0.2 H [facility] LYMPH % 5.3 % 25.0-50.0 L [facility] MONO % 6.8 % 2.0-10.0 [facility] EOS % 1.0 % 0-5.0 [facility] BASO % 0.2 % 0.0-2.0 [facility] GRAN # 8.0 K/mm3 2.0-8.00 [facility] IG# 0.1 K/mm3 0.0-0.2 [facility] LYMPH # 0.5 K/mm3 1.0-5.0 L [facility] MONO # 0.6 K/mm3 0.10-1.20 [facility] EOS # 0.1 K/mm3 0.0-0.5 [facility] BASO # 0.0 K/mm3 0.0-0.2 [facility] ID Date Data Source [id number] 10/27/2019 02:47:00 PM EDT SHY ([facility], ) Name Value Range Interpretation Code Description Data Julissa rce(s) Supporting Document(s) Surgical Pathology Consult Laboratory test result MEDENT ([facility], ) Surgical Pathology Report Name: NEEL BELL Collection Date: 10/27/2019 00:00 Received Date: 10/27/2019 14:48 Physician(s): KASIA GONZALEZ MD HAGHIR, SHAHANDEH F, MD Specimen(s) Received A: Material received for consultation, GDL[facility] Clinical History Screening. See colonoscopy report. Rule out IBD/ulcerative colitis. Diagnosis COLON, RANDOM BIOPSIES ([id number], 10/25/19): MILD CHRONIC ACTIVE COLITIS (See Microscopic Description). Electronically Signed By Elmer Quintanilla M.D., Attending Pathologist 11/04/2019 11:02:30 Gross Description Received from [facility] in [place], [place] are 2 H and E stained slides and one paraffin block labeled [id number] with the corresponding pathology report. /jrs Microscopic [...] developed and their performance characteristics determined by [facility] Pathology department. They have not been cleared or approved by the US Food and Drug Administration. The FDA has determined that such clearance or approval is not necessary. ID Date Data Source [id number] 11/04/2019 11:02:00 AM [facility] Surgical Pathology ReportName: Dilan BELLMRN: [id number] Number: [id number] Date: 10/27/2019 00:00Received Date: 10/27/2019 14:48Physician(s): KASIA GONZALEZ MD HAGHIR, SHAHANDEH F, MDSpecimen(s) ReceivedA: Material received for consultation, GDLRClinical HistoryScreening. See colonoscopy report. Rule out IBD/ulcerative colitis. DiagnosisCOLON, RANDOM BIOPSIES ([id number], 10/25/19): MILD CHRONIC ACTIVE COLITIS(See Microscopic Description).Electronically Signed By Elmer Quintanilla M.D., Attending Pathologist11/04/2019 11:02:30 Gross [facility] [place], [place] are 2 H and Estained slides and one paraffin block labeled [id number] with thecorresponding pathology report./jrsMicroscopic DescriptionI completely agree [...] and their performance charac teristics determined by [facility] Pathology department. They have not been cleared or approved by the USFood and Drug Administration. The FDA has determined that such clearanceor approval is not necessary. Name Value Range Interpretation Code Description Data Julissa rce(s) Supporting Document(s) ID Date Data Source [id number] 10/25/2019 08:21:00 AM EDT [facility] ([facility], ) Name Value Range Interpretation Code Description Data Julissa rce(s) Supporting Document(s) Surgical pathology study Laboratory test result [facility] ([facility]) FINAL DIAGNOSIS Colon, random biopsies: Acute and [...] as colonoscopy report was also sent to [facility] for consultation. Please see complete consultation report [id number]. 10/28/2019 - 1049 CLINICAL DIAGNOSIS Change in [...] MD 10/28/2019 1050 ID Date Data Source [id number] 07/18/2019 06:00:00 AM EST [facility] ([facility]) Name Value Range Interpretation Code Description Data Julissa rce(s) Supporting Document(s) Fats Neutral Laboratory test result Normal (applies to non -numeric results) [facility] ([facility]) <content>Normal (<60 Droplets/HPF)</cont ent>
<content></content> Fats Total Laboratory test result Normal (applies to non-n umeric results) [facility] ([facility]) <content>Normal (<100 Droplets/HPF)</con tent>
<content></content> ID Date Data Source [id number] 07/18/2019 06:00:00 AM EST [facility] ([facility]) Name Value Range Interpretation Code Description Data Julissa rce(s) Supporting Document(s) Calprotectin [Mass/mass] in Stool 184 ug/g 0-120 Above high no rmal [facility] ([facility], ) <content>Concentration Interpretatio n Follow-Up</content>
<content><16 - 50 ug/g Normal None</content>
<content>>50 -120 ug/g Borderline Re-evaluate in 4-6 weeks</content>
<content>>120 ug/g Abnormal Repeat as clinically</content>
<content>indicated</content>
<content>Performed at: RN - [facility]</content>
<content>[address], [place] [id number]</content>
<content>Radio Board Operator: Naheed Hussein MD, Phone: [phone]</content>
<content>Performed at: - [facility]</content>
<content>[address] [place] [phone]</content>
<content>Radio Board Operator: Adria Stoll MD, Phone: [phone]</content>
<content></content> Elastase.pancreatic [Mass/mass] in Stool Laboratory test result Normal (applies to non-numeric results) [facility] ([facility]) <content>Result Units: ug Elast./g</cont ent>
<content>Severe Pancreatic Insufficiency: <100</content>
<content>Moderate Pancreatic Insufficiency: 100 - 200</content>
<content>Normal: >200</content>
<content></content> ID Date Data Source [id number] 07/18/2019 06:00:00 AM EST [facility] ([facility], ) Name Value Range Interpretation Code Description Data Julissa rce(s) Supporting Document(s) Gastrointestinal (GI) Panel Laboratory test result [facility] ([facility], ) This Gastrointestinal PCR Panel detects the [...] smoker completed Patient is a former smoker [facility] ([facility]) Smoking 09/21/2019 12:00:00 AM EDT - 06/15/2001 12:00:00 AM EST Patient is a former smoker completed Patient is a former smoker [facility] ([facility], ) Vital Signs ID Date Data Source UNK Name Value Range Interpretation Code Description Data Source(s) Body mass index (BMI) [Ratio] 20.7 kg/m2 20.7 k g/m2 [facility] ([facility]) Body height 63 [in_i] 63 [in_i] [facility] ([facility]) 5'3" Body weight 117.00 [lb_av] 117.00 [lb_av] [facility] ([facility]) Body temperature 98.0 [degF] 98.0 [degF] [facility] ([facility]) Oxygen saturation in Arterial blood by Pulse oximetry 97 % 97 % [facility] ([facility]) Respiratory rate 18 /min 18 /min [facility] ( [facility]) Heart rate 93 /min 93 /min [facility] ([facility]) Diastolic blood pressure 97 mm[Hg] 97 mm[Hg] [facility] ([facility]) Systolic blood pressure 167 mm[Hg] 167 mm[Hg] [facility] Body surface area Derived from formula 2.01 m2 2.01 m2 [facility] ([facility]) Body weight 99.792 kg 99.792 kg [facility] ([facility]) [place] body weight 115 [lb_av] 115 [lb_av] [facility] ([facility]) Body mass index (BMI) [Ratio] 39.0 kg/m2 39.0 k g/m2 [facility] ([facility]) Body weight 220.00 [lb_av] 220.00 [lb_av] [facility] ([facility]) Body height 63 [in_i] 63 [in_i] [facility] ([facility]) 5'3" Body surface area Derived from formula 1.99 m2 1.99 m2 [facility] ([facility]) Body weight 97.070 kg 97.070 kg [facility] ([facility]) [place] body weight 115 [lb_av] 115 [lb_av] [facility] ([facility]) Body mass index (BMI) [Ratio] 37.9 kg/m2 37.9 k g/m2 [facility] ([facility]) Body weight 214.00 [lb_av] 214.00 [lb_av] [facility] Body height 63 [in_i] 63 [in_i] [facility] ([facility]) 5'3" Oxygen saturation in Arterial blood by Pulse oximetry 97 % 97 % [facility] ([facility]) Room Air Heart rate 94 /min 94 /min [facility] ([facility]) Diastolic blood pressure 80 mm[Hg] 80 mm[Hg] [facility] ([facility]) Systolic blood pressure 130 mm[Hg] 130 mm[Hg] [facility] ([facility]) Body weight 214.0 [lb_av] 214.0 [lb_av] eCW1 ([facility]) Body height 62.25 [in_i] 62.25 [in_i] eCW1 ([facility]) Oxygen saturation in Arterial blood by Pulse oximetry 97 % 97 % eCW1 ([facility]) Respiratory rate 20 /min 20 /min eCW1 ([facility]) Heart rate 95 /min 95 /min eCW1 ([facility]) Body temperature 98.6 [degF] 98.6 [degF] eCW1 ( [facility]) Body mass index (BMI) [Ratio] 38.82 kg/m2 38.82 kg/m2 eCW1 ([facility]) Body weight 98.431 kg 98.431 kg [facility] ([facility], ) [place] body weight 115 [lb_av] 115 [lb_av] [facility] T ([facility]) Body mass index (BMI) [Ratio] 38.4 kg/m2 38.4 k g/m2 [facility] Body weight 217.00 [lb_av] 217.00 [lb_av] [facility] T ([facility]) Body height 63 [in_i] 63 [in_i] [facility] ([facility]) 5'3" Diastolic blood pressure 72 mm[Hg] 72 mm[Hg] [facility] ([facility]) Systolic blood pressure 136 mm[Hg] 136 mm[Hg] [facility] Oxygen saturation in Arterial blood by Pulse oximetry 98 % 98 % eCW1 ([facility]) Respiratory rate 20 /min 20 /min eCW1 ([facility]) Heart rate 89 /min 89 /min eCW1 ([facility]) Body temperature 98.6 [degF] 98.6 [degF] eCW1 ( [facility]) Body mass index (BMI) [Ratio] 39.77 kg/m2 39.77 kg/m2 eCW1 ([facility]) Body weight 219.2 [lb_av] 219.2 [lb_av] eCW1 ([facility]) Body height 62.25 [in_i] 62.25 [in_i] eCW1 ([facility]) Body weight 95.710 kg 95.710 kg [facility] ([facility]) Body mass index (BMI) [Ratio] 37.4 kg/m2 37.4 k g/m2 [facility] ([facility]) Body weight 211.00 [lb_av] 211.00 [lb_av] [facility] T ([facility]) Body height 63 [in_i] 63 [in_i] [facility] ([facility]) 5'3" Body temperature 98.3 [degF] 98.3 [degF] [facility] ([facility]) Oxygen saturation in Arterial blood by Pulse oximetry 97 % 97 % [facility] ([facility]) Room Air Heart rate 80 /min 80 /min [facility] ([facility]) Diastolic blood pressure 90 mm[Hg] 90 mm[Hg] [facility] ([facility]) Systolic blood pressure 130 mm[Hg] 130 mm[Hg] [facility] ([facility]) Body weight 97.978 kg 97.978 kg [facility] ([facility]) Body mass index (BMI) [Ratio] 38.3 kg/m2 38.3 k g/m2 [facility] ([facility]) Body weight 216.00 [lb_av] 216.00 [lb_av] [facility] Body height 63 [in_i] 63 [in_i] [facility] ([facility]) 5'3" Diastolic blood pressure 84 mm[Hg] 84 mm[Hg] [facility] ([facility]) Systolic blood pressure 138 mm[Hg] 138 mm[Hg] [facility] ([facility]) Patient Treatment Plan of Care Planned Activity Planned Date Details Description Data Source (s) montelukast 10 MG Oral Tablet [Singulair] 12/19/2019 12:00:00 AM ED T eCW1 ([facility]) Prednisone 20 MG Oral Tablet 12/07/2019 12:00:00 AM EDT eCW1 ([facility]) Cyclobenzaprine hydrochloride 10 MG Oral Tablet 12/07/2019 12:00:00 AM EDT eCW1 ([facility])
--- NOTE | 2020-08-08 21:05 | REP ---
INDICATION: Coronavirus workup, history of sarcoidosis.. COMPARISON: 01/14/2016, CT 08/17/2012 TECHNIQUE: AP portable seated chest. FINDINGS: The lung dorman are well inflated. CP angles are sharply defined. There is no pleural effusion, lateral pleural thickening, apical scarring or pneumothorax. I see no dense consolidation or parenchymal mass. The heart is not enlarged and the aorta is normal. There is no vascular redistribution or pulmonary edema. No widening of the mediastinum. Some degenerative changes of the spine and shoulders are noted. No free air under the diaphragm. IMPRESSION: 1. No acute infiltrate, effusion cardiomegaly or edema. Mediastinal hilar contours unchanged from 2016 study. No new findings. <Electronically signed by Ray Lee > 08/08/20 [id number]
[2020-08-08] MEDS ORDERED: NS 1,000 ML IV ONE (21:40)
== END 2020-08-08 22:35 | disposition home or self-care (01) ==
LOC: M ED 18:19
DX: U07.1 COVID-19 (principal); E11.65 Type 2 diabetes mellitus with hyperglycemia; I51.9 Heart disease, unspecified; I10 Essential (primary) hypertension; Z87.891 Personal history of nicotine dependence; Z79.899 Other long term (current) drug therapy; Z88.1 Allergy status to other antibiotic agents

== ENCOUNTER 2020-08-08 22:35 | Outpatient (CLI) | payer OTHER ==
[~2020-08-08] VITALS: Ht 160 cm; Wt 95.3 kg
--- NOTE | 2020-08-08 21:31 | HPEPDOC ---
[facility] Medical History & Physical Date of Admission Aug 08, 2020 Date of Service: Aug 08, 2020 Attending Physician: SHARON BALLARD MD History and Physical TIME OF SERVICE 940PM CHIEF COMPLAINT: dyspnea HISTORY OF PRESENT ILLNESS: This 59 yr old F suddenly developed difficultly breathing especially when she walks along with intermittently productive cough, chills, nausea and diarrhea on Thursday; she denied loosing her appetite, having fever, vomiting or new rashes. She thought that her Sarcoidosis may be acting up so she went to see her PCP and was diagnosed with COVID 19 yesterday. ROS:negative except as listed in HPI PAST MEDICAL/SURGICAL HISTORY: DM HTN Ulcerative colitis Diverticulitis Vertigo Sarcoidosis Class 2 obesity Knee Surgery SOCIAL HISTORY: She quit smoking 20 yrs ago and doesn't drink FAMILY HISTORY: HTN, DM and lung Cancer ALLERGIES: Please see below. HOME MEDICATIONS: Please see below. PHYSICAL EXAMINATION: VITAL SIGNS: Temperature 99.1, pulse 100, respiratory rate 18, blood pressure 178/80, pulse oximetry 95% on room air. GENERAL APPEARANCE: NAD / well nourished well developed HEENT: mask covering lower race LUNGS: coughing occasionally EXTREMITIES: MELVIN x 4 PSYCHIATRIC: A&Ox 3 LABORATORY DATA: WBC 8.2, Hg 12.8, Plt 331, Na 135, K 4.7, Cl 100, HCO2 26, BUN 15, Cr 0.88, glucose 405 IMAGING: n/a MICROBIOLOGY: Please see below. ASSESSMENT: is a 59 yr old w a hx of Sarcoidosis, UC, DM, HTN and Class 2 obesity who will receive antibody infusion for mild COVID 19. PLAN: 1. Mild COVID 19 qCSI score = 0 points = low risk Plan: Bamlanivimab order set 2. Hypoglycemia Plan: IVF / f/u FSBS 3 Lactic acidosis Likely due to dehydration in the setting of hyperglycemia Plan: IVF / f/u repeat lactic acid Dispo:likely d/c home after infusion Home Medications Scheduled Fluticasone Furoate (Arnuity Ellipta) 100 Mcg Blst.w.dev, 100 MCG IN DAILY Lisinopril/Hydrochlorothiazide (Lisinopril-Hctz 20-25 mg Tab) 1 Each Tablet, 1 TAB PO DAILY Metformin HCl (Metformin HCl) 500 Mg Tablet, 1 TAB PO BID Scheduled PRN Albuterol Sulfate (Ventolin Hfa) 18 Gm Hfa.aer.ad, 2 PUFF INH Q4-6HP PRN for wheezing Naproxen Sodium (Naproxen Sodium) 550 Mg Tablet, 550 MG PO DAILYPRN PRN for pain Allergies Coded Allergies: azithromycin (Verified Allergy, Unknown, mouth sores, 08/08/20) A-FIB/CHADSVASC A-FIB History Current/History of A-Fib/PAF?: No Current PO Anticoag Therapy: No SHARON BALLARD MD Aug 08, 2020 21:31
[~2020-08-08 22:35] MED LIST changes: +ALBUTEROL 90 MCG/ACT 8GM HFA INHALER INH PRN; +ALBUTEROL SULFATE 2.5 MG/0.5 ML INH NEB SOLN INH PRN; +EPINEPHrine INJ 1 MG/ML 1ML AMP IM PRN; +NS 1,000 ML IV SCH; +NS 500 ML IV ONE; +diphenhydrAMINE 50MG/ML VIAL (J1200) IV PRN; +methylPREDNISolone 125MG 2ML VIAL IV PRN
[2020-08-08 22:48] VITALS: BP 168/79
[2020-08-08] MEDS ORDERED: BAMLANIVIMAB 700 MG in NS 250 ML IV ONE (23:15)
[2020-08-08 23:33] VITALS: BP 170/78
[2020-08-08 23:59] VITALS: BP 163/75
[2020-08-09] MEDS ORDERED: NS 500 ML IV ONE (00:10)
[2020-08-09 00:39] VITALS: BP 145/84
[2020-08-09 02:07] VITALS: BP 178/84
== END 2020-08-09 02:15 | disposition home health service (06) ==
LOC: M OPCLI4 22:35 → M 4MAIN 22:36 → M OPCLI4 08-09 02:15
PROVIDERS: ATTEND Internal Medicine
DX: U07.1 COVID-19 (principal); Z88.1 Allergy status to other antibiotic agents
CPT/HCPCS: 36415; 83605; M0239

== ENCOUNTER → 2021-01-14 | Outpatient (CLI) | payer OTHER ==
[~2021-01-14] MED LIST changes: -ALBUTEROL 90 MCG/ACT 8GM HFA INHALER INH PRN; -ALBUTEROL SULFATE 2.5 MG/0.5 ML INH NEB SOLN INH PRN; -EPINEPHrine INJ 1 MG/ML 1ML AMP IM PRN; -NS 1,000 ML IV SCH; -NS 500 ML IV ONE; -diphenhydrAMINE 50MG/ML VIAL (J1200) IV PRN; -methylPREDNISolone 125MG 2ML VIAL IV PRN
--- NOTE | 2021-01-14 11:54 | REP ---
INDICATION: R06.02 SHORTNESS OF BREATH. COMPARISON: Portable chest, 08/08/2020. TECHNIQUE: Upright PA and lateral images of the chest were obtained. FINDINGS: There is cardiomegaly, pulmonary venous hypertension and pulmonary interstitial edema consistent with congestive heart failure. There are no significant pleural effusions. The upper abdominal bowel gas pattern is normal. There is mild dextroscoliosis of the thoracic spine. IMPRESSION: Congestive heart failure. <Electronically signed by Ankit Alejandra > 01/14/21 [id number]
== END ==
LOC: M WUC 10:20
PROVIDERS: ATTEND Physician Assistant
DX: R06.02 Shortness of breath (principal); I50.9 Heart failure, unspecified; M41.84 Other forms of scoliosis, thoracic region

== ENCOUNTER → 2022-02-03 | Outpatient (CLI) | payer OTHER ==
[~2022-02-03] MED LIST changes: -LISI20TA20 PO; +LISI20TA37 PO
== END ==
LOC: M RAD 06:36
PROVIDERS: ATTEND Physician Assistant
DX: M25.552 Pain in left hip (principal); M70.62 Trochanteric bursitis, left hip; M16.0 Bilateral primary osteoarthritis of hip

== ENCOUNTER 2024-03-16 11:31 | Day surgery (SDC) | payer OTHER ==
[~2024-03-16] VITALS: Ht 160 cm; Wt 97.1 kg
[2024-03-16] MEDS: CEFUROXIME 1MG/0.1ML INTRACAMERAL INJ As Ordered ONE (07:11)
[~2024-03-16 11:31] MED LIST changes: +AMLO1TAB25 PO; +GLIP5TAB17 PO; +HYDR-3490 PO; +IRON65TA2 PO; +LORA-1041 PO; +LOSA100T46 PO; +METF-838 PO; +PHENYLEPHRINE 10% OPHTH SOL 5ML OS PRN
[2024-03-16] MEDS: OFLOXACIN 0.3 % (OCUFLOX) OPTH SOL 5ML OS ONE (13:00)
[2024-03-16] MEDS: ATROPINE SULFATE 1% OPHTH SOLN 2ML BTL OS SCH (13:00)
[2024-03-16] MEDS: LIDOCAINE 3.5 % 1ML OPHTH TOPICAL GEL OU ONE (13:00)
[2024-03-16] MEDS: PHENYLEPHRINE 2.5% OPHTH SOL 2ML OS SCH (13:00)
[2024-03-16] MEDS: TROPICAMIDE 1% OPHTH SOLN 15ML OS SCH (13:01)
[2024-03-16] MEDS ORDERED: MIDAZOLAM INJ 2MG/2ML VIAL As Ordered ONE (14:37)
[2024-03-16] MEDS ORDERED: fentaNYL 100 MCG/2 ML INJECTION As Ordered ONE (14:38)
[2024-03-16] MEDS: MOXIFLOXACIN 0.6MG/0.4ML INTRAOCULAR SYRINGE As Ordered ONE (14:43)
[2024-03-16] MEDS: BSS IRRIG/VANCO(10MG)/TOBRA(5MG)/EPINEPH(1:1000-0.5CC)500ML BAG-ORONLY As Ordered ONE (14:43)
[2024-03-16] MEDS: LIDOCAINE 1% SDV 5ML VIAL As Ordered ONE (14:43)
[2024-03-16 14:53] VITALS: BP 178/85; TEMP 97.6; O2SAT 99
== END 2024-03-16 15:21 | disposition home or self-care (01) ==
LOC: M SDC 11:31
PROVIDERS: ATTEND Ophthalmology
DX: H25.12 Age-related nuclear cataract, left eye (principal); I10 Essential (primary) hypertension; E11.9 Type 2 diabetes mellitus without complications; K57.92 Diverticulitis of intestine, part unspecified, without perforation or abscess without bleeding; G47.33 Obstructive sleep apnea (adult) (pediatric); Z88.1 Allergy status to other antibiotic agents; Z79.84 Long term (current) use of oral hypoglycemic drugs; Z79.51 Long term (current) use of inhaled steroids; Z79.899 Other long term (current) drug therapy; J45.909 Unspecified asthma, uncomplicated
CPT/HCPCS: 66984; J2250; J3010; V2632

== ENCOUNTER 2024-03-30 09:20 | Day surgery (SDC) | payer OTHER ==
[~2024-03-30] VITALS: Ht 160 cm; Wt 97.5 kg
[~2024-03-30 09:20] MED LIST changes: +MIDAZOLAM INJ 2MG/2ML VIAL As Ordered ONE; +PHENYLEPHRINE 10% OPHTH SOL 5ML OD PRN; -PHENYLEPHRINE 10% OPHTH SOL 5ML OS PRN; +fentaNYL 100 MCG/2 ML INJECTION As Ordered ONE
[2024-03-30] MEDS: LIDOCAINE 3.5 % 1ML OPHTH TOPICAL GEL OU ONE (10:00)
[2024-03-30] MEDS: OFLOXACIN 0.3 % (OCUFLOX) OPTH SOL 5ML OD ONE (10:00)
[2024-03-30] MEDS: TROPICAMIDE 1% OPHTH SOLN 15ML OD SCH (10:12)
[2024-03-30] MEDS: PHENYLEPHRINE 2.5% OPHTH SOL 2ML OD SCH (10:12)
[2024-03-30] MEDS: ATROPINE SULFATE 1% OPHTH SOLN 2ML BTL OD SCH (10:12)
[2024-03-30] MEDS: INSULIN LISPRO (NovoLOG) PER UNIT SC PRN (10:55)
[2024-03-30] MEDS: CEFUROXIME 1MG/0.1ML INTRACAMERAL INJ As Ordered ONE (11:11)
[2024-03-30] MEDS: BSS IRRIG/VANCO(10MG)/TOBRA(5MG)/EPINEPH(1:1000-0.5CC)500ML BAG-ORONLY As Ordered ONE (11:11)
[2024-03-30] MEDS: LIDOCAINE 1% SDV 5ML VIAL As Ordered ONE (11:11)
[2024-03-30 11:24] VITALS: BP 198/85; TEMP 98; O2SAT 99
[2024-03-30] MEDS: DUOVISC (0.50ML VISCOAT/0.85ML PROVISC) OPHTH KIT As Ordered ONE (14:12)
== END 2024-03-30 11:35 | disposition home or self-care (01) ==
LOC: M SDC 09:20
PROVIDERS: ATTEND Ophthalmology
DX: H25.11 Age-related nuclear cataract, right eye (principal); I10 Essential (primary) hypertension; E11.9 Type 2 diabetes mellitus without complications; K51.90 Ulcerative colitis, unspecified, without complications; K57.92 Diverticulitis of intestine, part unspecified, without perforation or abscess without bleeding; J45.909 Unspecified asthma, uncomplicated; D86.0 Sarcoidosis of lung; Z88.1 Allergy status to other antibiotic agents; Z87.891 Personal history of nicotine dependence; Z79.84 Long term (current) use of oral hypoglycemic drugs; Z79.899 Other long term (current) drug therapy; Z79.51 Long term (current) use of inhaled steroids
CPT/HCPCS: 66984; J0697; J2250; J3010; V2632

== ENCOUNTER 2025-03-13 09:56 | Day surgery (SDC) | payer OTHER ==
[~2025-03-13] VITALS: Ht 160 cm; Wt 93.6 kg
[~2025-03-13 09:56] MED LIST changes: -ADV250INH INH; +ADVA1AER9 INH; -MIDAZOLAM INJ 2MG/2ML VIAL As Ordered ONE; -PHENYLEPHRINE 10% OPHTH SOL 5ML OD PRN; -fentaNYL 100 MCG/2 ML INJECTION As Ordered ONE
[2025-03-13] MEDS ORDERED: LIDOCAINE 2% 100 MG/5 ML SDV (FOR ANES.) As Ordered ONE (11:39)
[2025-03-13 12:02] VITALS: TEMP 98.9
[2025-03-13] MEDS ORDERED: GLYCOPYRROLATE INJ 0.2 MG/ML 2 ML VIAL As Ordered ONE (12:08)
[2025-03-13 12:21] VITALS: BP 120/75; O2SAT 96
== END 2025-03-13 12:28 | disposition home or self-care (01) ==
LOC: M OPP 09:56
PROVIDERS: ATTEND Internal Medicine Gastroenterology
DX: K52.9 Noninfective gastroenteritis and colitis, unspecified (principal); K51.90 Ulcerative colitis, unspecified, without complications; K63.89 Other specified diseases of intestine; K57.30 Diverticulosis of large intestine without perforation or abscess without bleeding; K64.8 Other hemorrhoids; G47.30 Sleep apnea, unspecified; Z88.1 Allergy status to other antibiotic agents; Z79.51 Long term (current) use of inhaled steroids; Z79.84 Long term (current) use of oral hypoglycemic drugs; Z79.899 Other long term (current) drug therapy
CPT/HCPCS: 45380; 88305; J1596